=== PATIENT | female | born 1995 | race Caucasian/White ===

== ENCOUNTER → 2016-10-22 | Outpatient (CLI) | payer OTHER ==
[2016-10-22 16:34] LABS: CH 30.9; CHCM 34.3; HCT 40.3 % (34.0-46.0); HGB 13.7 gm/dL (11.4-16.0); MCH 30.7 pg (25.0-35.0); MCV 90.3 fL (80.0-100.0); Mean Platelet Volume 7.9; RBC 4.47 m/uL (3.80-5.40); RDW 12.7 % (11.5-15.5); WBC 9.4 k/uL (3.8-10.6)
[2016-10-22 17:14] LABS: Glucose 88 mg/dL (74-99); Non-African American GFR(MDRD) >60 (>60 ml/min/1.73 sqM)
--- NOTE | 2016-10-22 17:26 | US ---
EXAMINATION TYPE: US OB <=14 wks transvag DATE OF EXAM: 10/22/2016 COMPARISON: NONE CLINICAL HISTORY: 046.91 BLEEDING, SPOTING. EXAM PERFORMED: Transvaginal (TV) and Transabdominal (TA) EXAM MEASUREMENTS: GESTATIONAL AGE / DATING Physician Established: not established Dates by LMP: does not correlate Dates by First Scan: this is first scan Dates by Current Scan for: (6 weeks/0 days) EDC: 06/17/2017 MATERNAL ANATOMY Uterus: 6.7 x 3.9 x 5.9 cm Right Ovary: 2.4 x 2.3 x 2.3 cm Left Ovary: 6.6 x 3.3 x 4.9 Post CDS / Adnexa: trace free fluid Presence of free fluid: small amount in cul de sac Presence of corpus luteal cyst: left ovary measuring 3.2 x 2.5 x 2.9 cm GESTATION / SURVEY CRL: 0.3 cm (6 weeks/0 days) MSD: 1.7 (6 weeks/0 days) Yolk Sac (normal less than 6mm): 0.3 cm Heart Rate: 105 bpm Rhythm: Normal IUP: Viable IUP Date of LMP: patient states in either July or August, dates given would of put her 11 weeks , does not correlate. viable IUP at 6W 0D, HR 105. IMPRESSION: Single viable intrauterine however dates are discordant. Small amount of free fluid and cor pus luteal cyst.
[2016-10-22 17:43] LABS: Hepatitis B Surface Ag Index 0.06
[2016-10-22 17:56] LABS: HCG,Quantitative Serum 54847.4 mIU/mL
[2016-10-23 05:00] LABS: Toxoplasma Antibody (IgG) <3.0 IU/mL (<7.2)
== END | disposition home or self-care (01) ==
LOC: RADUSWWP 15:22
PROVIDERS: ATTEND Obstetrics & Gynecology
DX: O34.80 Maternal care for other abnormalities of pelvic organs, unspecified trimester (principal); N83.10 Corpus luteum cyst of ovary, unspecified side; Z3A.01 Less than 8 weeks gestation of pregnancy
CPT/HCPCS: 36415; 76801; 76817; 82565; 82947; 84702; 85027; 86762; 86777; 86778; 86780; 86850; 86900; 86901; 87340

== ENCOUNTER → 2016-10-29 | Outpatient (CLI) | payer OTHER ==
--- NOTE | 2016-10-29 11:52 | US ---
EXAMINATION TYPE: US OB <= 14 wk fetus DATE OF EXAM: 10/29/2016 COMPARISON: US 2017 CLINICAL HISTORY: Z36 FOLLOW UP PREV ABN US; EXAM PERFORMED: Transabdominal (TA) EXAM MEASUREMENTS: GESTATIONAL AGE / DATING Physician Established: not established Dates by LMP: unsure of LMP Dates by First Scan: ( 7 weeks/0 days) EDC: 06/17/2017 Dates by Current Scan for: (7 weeks/ 1 day) EDC: 06/16/2016 MATERNAL ANATOMY Uterus: 6.8 x 6.8 x 4.4cm Right Ovary: 2.1 x 1.0 x 1.6cm Left Ovary: 4.0 x 3.5 x 3.0 Post CDS / Adnexa: wnl Presence of free fluid: no Presence of corpus luteal cyst: in left ovary = 3.3 x 2.4 x 2.6cm Presence of subchorionic bleed: no GESTATION / SURVEY CRL: 1.06cm (7 weeks/1 day) Yolk Sac (normal less than 6mm): not seen Heart Rate: 127 bpm Rhythm: Normal IUP: single Date of LMP: unsure Beta HcG (if available): NA IMPRESSION: Single, live, IUP,7 weeks/ 1 day, EDC: 06/16/2016; HR 127bpm.
== END | disposition home or self-care (01) ==
LOC: RADUSWWP 10:53
PROVIDERS: ATTEND Obstetrics & Gynecology
DX: Z36 Encounter for antenatal screening of mother (principal); Z3A.01 Less than 8 weeks gestation of pregnancy
CPT/HCPCS: 76801

== ENCOUNTER → 2017-12-24 | Outpatient (CLI) | payer OTHER ==
--- NOTE | 2017-12-25 08:16 | US ---
EXAMINATION TYPE: US transvaginal DATE OF EXAM: 12/24/2017 COMPARISON: NONE CLINICAL HISTORY: R10.2 Pelvic and perineal pain. TECHNIQUE: Transvaginal sonographic images were ordered. Date of LMP: 12/06/17 EXAM MEASUREMENTS: Uterus: 6.6 x 4.0 x 3.7 cm Endometrial Stripe: 0.8 cm Right Ovary: 2.3 x 1.5 x 1.3 cm Left Ovary: 2.5 x 2.3 x 1.7 cm 1. Uterus: IUD seen within fundus 2. Endometrium: wnl 3. Right Ovary: wnl 4. Left Ovary: There is a 1.7 x 1.2 cm simple appearing left ovarian cyst. 5. Bilateral Adnexa: wnl 6. Posterior cul-de-sac: wnl IMPRESSION: 1. IUD is within the uterus. 2. Left ovarian cyst.
== END | disposition home or self-care (01) ==
LOC: RADUSWWP 15:47
PROVIDERS: ATTEND Obstetrics & Gynecology
DX: N83.202 Unspecified ovarian cyst, left side (principal); Z97.5 Presence of (intrauterine) contraceptive device
CPT/HCPCS: 76830

== ENCOUNTER → 2019-07-08 | Outpatient (CLI) | payer OTHER ==
--- NOTE | 2019-07-08 09:49 | US ---
EXAMINATION TYPE: Transabdominal DATE OF EXAM: 07/08/2019 9:21 AM COMPARISON: NONE CLINICAL HISTORY: Z34.01 SUPERVISION OF NORMAL FIRST . EXAM PERFORMED: Transvaginal (TV) and Transabdominal (TA) EXAM MEASUREMENTS: GESTATIONAL AGE / DATING Physician Established: Not yet established Dates by LMP: 05/09/2019 (8 weeks/4 days) EDC: 02/13/2020 Dates by First Scan: No previous this is first scan Dates by Current Scan for: (7 weeks/5 days) EDC: 02/19/2020 MATERNAL ANATOMY Uterus: 9.2 x 5.0 x 5.8 cm Right Ovary: 3.1 x 2.2 x 2.0 cm Left Ovary: 2.6 x 1.8 x 1.8 cm Post CDS / Adnexa: wnl Presence of free fluid: none Presence of corpus luteal cyst: complex area right ovary measures 2.5 x 1.5 x 2.2 cm GESTATION / SURVEY CRL: 1.4 cm (7 weeks/5 days) Yolk Sac (normal less than 6mm): 0.3 cm Heart Rate: 160 bpm Rhythm: Normal IUP: Live IUP Date of LMP: 05/09/2019 Single live IUP that correlates with LMP. IMPRESSION: Single live intrauterine with a sonographic age of 7 weeks and 5 days and estim ated date of delivery of 02/19/2020, overall concordant with menstrual age.
== END | disposition home or self-care (01) ==
LOC: RADUSWWP 08:51
PROVIDERS: ATTEND Obstetrics & Gynecology
DX: Z34.01 Encounter for supervision of normal first pregnancy, first trimester (principal); Z3A.01 Less than 8 weeks gestation of pregnancy
CPT/HCPCS: 76801; 76817

== ENCOUNTER → 2020-05-21 | Outpatient (CLI) | payer OTHER ==
[2020-05-21 12:52] LABS: HCT 38.2 % (34.0-46.0); HGB 13.3 gm/dL (11.4-16.0); MCH 30.2 pg (25.0-35.0); MCHC 34.9 g/dL (31.0-37.0); MCV 86.5 fL (80.0-100.0); Mean Platelet Volume 8.3; Platelet Count 253 k/uL (150-450); RBC 4.42 m/uL (3.80-5.40); RDW 14.2 % (11.5-15.5)
[2020-05-21 20:33] LABS: African American GFR (CKD) 139.6 (60.0-200.0); Albumin 4.7 g/dL (3.80-4.90); Albumin/Globulin Ratio 2.04 (1.60-3.17); Anion Gap 10.3 mmol/L (4.00-12.00); BUN/Creat Ratio 21.43 Ratio (12.00-20.00); Calcium 9.3 mg/dL (8.7-10.3); Carbon Dioxide 22.7 mmol/L (21.6-31.8); Chol/HDL Ratio 3.13; Globulin 2.3 g/dL (1.6-3.3); LDL Cholesterol,Calculated 123.2 mg/dL (0.0-131.0); Non-African American GFR(CKD) 120.4 (60.0-200.0); Potassium 3.8 mmol/L (3.5-5.5); Total Bilirubin 0.4 mg/dL (0.2-1.2); VLDL Calculation 19.8 mg/dL (5.00-40.00)
[2020-05-21 23:00] LABS: C-Peptide 0.92 ng/mL (0.81-3.85)
[2020-05-21 23:21] LABS: Urine Creatinine 173.3 mg/dL
== END | disposition home or self-care (01) ==
LOC: LABWHC1 11:43
PROVIDERS: ATTEND Internal Medicine Endocrinology, Diabetes & Metabolism
DX: E11.65 Type 2 diabetes mellitus with hyperglycemia (principal)
CPT/HCPCS: 36415; 80053; 80061; 82043; 82306; 82570; 83519; 84439; 84443; 84681; 85027; 86337; 86341

== ENCOUNTER 2023-09-17 16:12 | Emergency (ER) | payer OTHER ==
--- NOTE | 2023-09-17 17:06 | ED ---
Abdominal Pain HPI - General Chief Complaint: Abdominal Pain Stated Complaint: vaginal bleeding - 8 wks preg Time Seen by Provider: 09/17/23 16:30 Source: patient, RN notes reviewed Mode of arrival: ambulatory Limitations: no limitations - History of Present Illness Initial Comments: 27-year-old female at 7 weeks gestation presenting with vaginal bleeding and suprapubic pain x 4 days. States the bleeding began as dark brown and light in quantity, but over the past couple days it has become more abundant and bright red. Patient admits generalized suprapubic discomfort, but denies any back pain, nausea, vomiting. Patient states she has had 2 pregnancies prior to this. States she has not had an ultrasound yet, she was scheduled for an ultrasound in 4 days from now which would be 8 weeks. Denies history of ectopic or miscarriage. - Related Data Allergies Allergy/AdvReac Type Severity Reaction Status Date / Time Penicillins Allergy Anaphylaxis Verified 09/17/23 16:39 Review of Systems ROS Statement: Those systems with pertinent positive or pertinent negative responses have been documented in the HPI. ROS Other: All systems not noted in ROS Statement are negative. Past Medical History Past Medical History: Diabetes Mellitus Additional Past Medical History / Comment(s): type 1 History of Any Multi-Drug Resistant Organisms: None Reported Past Surgical History: Section Past Psychological History: No Psychological Hx Reported Smoking Status: Never smoker Past Alcohol Use History: None Reported Past Drug Use History: None Reported, Marijuana General Exam Limitations: no limitations General appearance: alert, in no apparent distress Respiratory exam: Present: normal lung sounds bilaterally. Absent: respiratory distress, wheezes, rales, rhonchi, stridor Cardiovascular Exam: Present: regular rate, normal rhythm, normal heart sounds. Absent: systolic murmur, diastolic murmur, rubs, gallop, clicks GI/Abdominal exam: Present: soft, normal bowel sounds. Absent: distended, tenderness, guarding, rebound, rigid Back exam: Absent: CVA tenderness (R), CVA tenderness (L) Psychiatric exam: Present: normal affect, normal mood Skin exam: Present: warm, dry, intact, normal color. Absent: rash Course Vital Signs 09/17/23 16:36 Temperature 98.5 F Pulse Rate 99 Respiratory 16 Rate Blood Pressure 114/74 O2 Sat by Pulse 100 Oximetry Medical Decision Making - Medical Decision Making Was pt. sent in by a medical professional or institution ([facility]TE Tipton, CARDIOVASCULAR TECHNICIAN, urgent care, hospital, or long term...) When possible be specific @ -No Did you speak to anyone other than the patient for history (EMS, parent, family, police, friend...)? What history was obtained from this source @ -No Did you review nursing and triage notes (agree or disagree)? Why? @ -I reviewed and agree with nursing and triage notes Were old charts reviewed (outside hosp., previous admission, EMS record, old EKG, old radiological studies, urgent care reports/EKG's, long term records)? Report findings @ -No old charts were reviewed Differential Diagnosis (chest pain, altered mental status, abdominal pain women, abdominal pain men, vaginal bleeding, weakness, fever, dyspnea, syncope, headache, dizziness, GI bleed, back pain, seizure, CVA, palpatations, mental health, musculoskeletal)? @ -Differential Vaginal Bleeding: Spontaneous , threatened , molar , ectopic , bloody show, incompetent cervix, abruptioplacenta, placenta previa, uterine rupture, dysfunctional uterine bleeding, hemorrhage, uterine fibroids, this is not meant to be an all-inclusive list. EKG interpreted by me (3pts min.). @ -None X-rays interpreted by me (1pt min.). @ -None done CT interpreted by me (1pt min.). @ -None done U/S interpreted by me (1pt. min.). @ -Pelvic ultrasound revealed single, live intrauterine estimating 6 weeks and 2 days What testing was considered but not performed or refused? (CT, X-rays, U/S, labs)? Why? @ -None What meds were considered but not given or refused? Why? @ -None Did you discuss the management of the patient with other professionals (professionals i.e. [employer] Tipton, CARDIOVASCULAR TECHNICIAN, lab, RT, psych nurse, web content & social media manager, clerk of court, teacher, nuclear officer, shoe parts caser)? Give summary @ -No Was smoking cessation discussed for >3mins.? @ -No Was critical care preformed (if so, how long)? @ -No Were there social determinants of health that impacted care today? How? (Homelessness, low income, unemployed, alcoholism, drug addiction, transportation, low edu. Level, literacy, decrease access to med. care, shelter, rehab)? @ -No Was there de-escalation of care discussed even if they declined (Discuss DNR or withdrawal of care, Hospice)? DNR status @ -No What co-morbidities impacted this encounter? (DM, HTN, Smoking, COPD, CAD, Cancer, CVA, ARF, Chemo, Hep., AIDS, mental health diagnosis, sleep apnea, morbid obesity)? @ -None Was patient admitted / discharged? Hospital course, mention meds given and route, prescriptions, significant lab abnormalities, going to OR and other pertinent info. @ -Patient was discharged. Patient was seen and evaluated for vaginal bleeding and mild abdominal cramping at 7 weeks gestation. Ultrasound revealed viable intrauterine . Labs were unremarkable. Patient is Rh negative. Patient was given RhoGAM. Discussed diagnosis of threatened with patient. Advised to follow-up with OB in 2 days for repeat beta hCG levels to trend and possible repeat ultrasound. Strict return precautions discussed with patient and alarm symptoms discussed. Patient discharged in stable condition. Case discussed with Dr. Reyes. Undiagnosed new problem with uncertain prognosis? @ -No Drug Therapy requiring intensive monitoring for toxicity (Heparin, Nitro, Insulin, Cardizem)? @ -No Were any procedures done? @ -No Diagnosis/symptom? @ -Threatened Acute, or Chronic, or Acute on Chronic? @ -Acute Uncomplicated (without systemic symptoms) or Complicated (systemic symptoms)? @ -Uncomplicated Side effects of treatment? @ -No Exacerbation, Progression, or Severe Exacerbation? @ -No Poses a threat to life or bodily function? How? (Chest pain, USA, DC, pneumonia, PE, COPD, DKA, ARF, appy, cholecystitis, CVA, Diverticulitis, Homicidal, Suicidal, threat to staff... and all critical care pts) @ -No - Lab Data Result diagrams: 09/17/23 17:05 09/17/23 17:05 Lab Results 09/17/23 09/17/23 09/17/23 Range/Units 17:05 17:05 17:05 WBC 9.5 (3.8-10.6) k/uL RBC 4.72 (3.80-5.40) m/uL Hgb 14.1 (11.4-16.0) gm/dL Hct 43.8 (34.0-46.0) % MCV 92.8 (80.0-100.0) fL MCH 30.0 (25.0-35.0) pg MCHC 32.3 (31.0-37.0) g/dL RDW 12.0 (11.5-15.5) % Plt Count 236 (150-450) k/uL MPV 8.6 Neutrophils % 62 % Lymphocytes % 29 % Monocytes % 5 % Eosinophils % 2 % Basophils % 1 % Neutrophils # 5.9 (1.3-7.7) k/uL Lymphocytes # 2.7 (1.0-4.8) k/uL Monocytes # 0.5 (0-1.0) k/uL Eosinophils # 0.2 (0-0.7) k/uL Basophils # 0.1 (0-0.2) k/uL Sodium 138 (137-145) mmol/L Potassium 4.2 (3.5-5.1) mmol/L Chloride 103 (98-107) mmol/L Carbon Dioxide 30 (22-30) mmol/L Anion Gap 5 mmol/L BUN 9 (7-17) mg/dL Creatinine 0.43 L (0.52-1.04) mg/dL Est GFR (CKD-EPI)AfAm >90 (>60 ml/min/1.73 sqM) Est GFR (CKD-EPI)NonAf >90 (>60 ml/min/1.73 sqM) Glucose 218 H (74-99) mg/dL Calcium 9.7 (8.4-10.2) mg/dL HCG, Quant 2250.5 mIU/mL Urine Color Colorless Urine Appearance Cloudy H (Clear) Urine pH 6.5 (5.0-8.0) Ur Specific [place] 1.008 (1.001-1.035) Urine Protein Negative (Negative) Urine Glucose (UA) 4+ H (Negative) Urine Ketones Negative (Negative) Urine Blood Large H (Negative) Urine Nitrite Negative (Negative) Urine Bilirubin Negative (Negative) Urine Urobilinogen <2.0 (<2.0) mg/dL Ur Leukocyte Esterase Negative (Negative) Urine RBC 1 (0-5) /hpf Urine WBC <1 (0-5) /hpf Ur Squamous Epith Cells 2 (0-4) /hpf Urine Bacteria Rare H (None) /hpf Blood Type Blood Type Recheck Bld Type Recheck Status 04/25/24 Range/Units 18:15 WBC (3.8-10.6) k/uL RBC (3.80-5.40) m/uL Hgb (11.4-16.0) gm/dL Hct (34.0-46.0) % MCV (80.0-100.0) fL MCH (25.0-35.0) pg MCHC (31.0-37.0) g/dL RDW (11.5-15.5) % Plt Count (150-450) k/uL MPV Neutrophils % % Lymphocytes % % Monocytes % % Eosinophils % % Basophils % % Neutrophils # (1.3-7.7) k/uL Lymphocytes # (1.0-4.8) k/uL Monocytes # (0-1.0) k/uL Eosinophils # (0-0.7) k/uL Basophils # (0-0.2) k/uL Sodium (137-145) mmol/L Potassium (3.5-5.1) mmol/L Chloride (98-107) mmol/L Carbon Dioxide (22-30) mmol/L Anion Gap mmol/L BUN (7-17) mg/dL Creatinine (0.52-1.04) mg/dL Est GFR (CKD-EPI)AfAm (>60 ml/min/1.73 sqM) Est GFR (CKD-EPI)NonAf (>60 ml/min/1.73 sqM) Glucose (74-99) mg/dL Calcium (8.4-10.2) mg/dL HCG, Quant mIU/mL Urine Color Urine Appearance (Clear) Urine pH (5.0-8.0) Ur Specific [place] (1.001-1.035) Urine Protein (Negative) Urine Glucose (UA) (Negative) Urine Ketones (Negative) Urine Blood (Negative) Urine Nitrite (Negative) Urine Bilirubin (Negative) Urine Urobilinogen (<2.0) mg/dL Ur Leukocyte Esterase (Negative) Urine RBC (0-5) /hpf Urine WBC (0-5) /hpf Ur Squamous Epith Cells (0-4) /hpf Urine Bacteria (None) /hpf Blood Type A Negative Blood Type Recheck A Neg Bld Type Recheck Status [facility] ONLY Disposition Clinical Impression: Threatened in first trimester Disposition: HOME SELF-CARE Condition: Stable Instructions (If sedation given, give patient instructions): Threatened Miscarriage (ED) Additional Instructions: Please follow-up with OB in 2 days for repeat beta-hCG levels and possible r epeat ultrasound. Please return to the Emergency Department if symptoms worsen or any other concerns. Is patient prescribed a controlled substance at d/c from ED?: No Referrals: Janee Fried MD [Primary Care Provider] - 1-2 days Time of Disposition: 19:29
[2023-09-17 17:21] LABS: Basophils # (A) 0.1 k/uL (0-0.2); Basophils % (A) 1 %; Eosinophils # (A) 0.2 k/uL (0-0.7); Eosinophils % (A) 2 %; HCT 43.8 % (34.0-46.0); HGB 14.1 gm/dL (11.4-16.0); Lymphocytes # (A) 2.7 k/uL (1.0-4.8); Lymphocytes % (A) 29 %; MCHC 32.3 g/dL (31.0-37.0); MCV 92.8 fL (80.0-100.0); Mean Platelet Volume 8.6; Monocytes # (A) 0.5 k/uL (0-1.0); Monocytes % (A) 5 %; Neutrophils # (A) 5.9 k/uL (1.3-7.7); Neutrophils % (A) 62 %; Platelet Count 236 k/uL (150-450); RBC 4.72 m/uL (3.80-5.40); WBC 9.5 k/uL (3.8-10.6)
[2023-09-17 17:34] LABS: African American GFR (CKD) >90 (>60 ml/min/1.73 sqM); Anion Gap 5 mmol/L; Blood Urea Nitrogen 9 mg/dL (7-17); Calcium 9.7 mg/dL (8.4-10.2); Carbon Dioxide 30 mmol/L (22-30); Chloride 103 mmol/L (98-107); Glucose 218 mg/dL (74-99); Non-African American GFR(CKD) >90 (>60 ml/min/1.73 sqM); Potassium 4.2 mmol/L (3.5-5.1); Sodium 138 mmol/L (137-145)
[2023-09-17 17:48] LABS: Appearance,Urine Cloudy (Clear); Bacteria,Urine Rare /hpf; Bilirubin,Urine Negative (Negative); Blood,Urine Large (Negative); Color,Urine Colorless; Glucose,Urine (UA) 4+ (Negative); Ketones,Urine Negative (Negative); Leukocyte Esterase,Urine Negative (Negative); Nitrite,Urine Negative (Negative); PH, Urine 6.5 (5.0-8.0); Protein,Urine Negative (Negative); RBC,Urine 1 /hpf (0-5); Specific Gravity,Urine 1.008 (1.001-1.035); Squamous Epithelial Cell,Urine 2 /hpf (0-4); Urobilinogen,Urine <2.0 mg/dL (<2.0); WBC,Urine <1 /hpf (0-5)
[2023-09-17 17:51] LABS: HCG,Quantitative Serum 2250.5 mIU/mL
--- NOTE | 2023-09-17 18:55 | US ---
EXAMINATION TYPE: Transabdominal DATE OF EXAM: 09/17/2023 5:48 PM COMPARISON: 07/08/2019 CLINICAL INDICATION: Female, 27 years old with history of vaginal bleeding/ 7 weeks ; Patient states bleeding and cramping for 4 days. EXAM PERFORMED: Transvaginal (TV) and Transabdominal (TA) EXAM MEASUREMENTS: GESTATIONAL AGE / DATING Physician Established: (7 weeks/4 days) EDC: 05/01/2024 Dates by LMP: (7 weeks/4 days) EDC: 05/01/2024 Dates by First Scan: No previous this is first scan Dates by Current Scan for: (6 weeks/2 days) EDC: 05/10/2024 MATERNAL ANATOMY Uterus: 7.2 x 4.1 x 5.2. Viable IUP seen at this time. Right Ovary: Measures 2.8 x 1.7 x 2.8cm. There is a 1.3 x 1.0 x 1.1cm hypoechoic area seen within t he right ovary, question corpus luteum cyst vs other etiology. Left Ovary: 2.3 x 1.7 x 1.1cm. Within normal limits as best visualized Post CDS / Adnexa: Within normal limits as best seen Presence of free fluid: No Presence of corpus luteal cyst: Questionable, see right ovary for details. Presence of subchorionic bleed: No GESTATION / SURVEY CRL: 0.5cm (6 weeks/2 days) MSD: 0.68cm The gestational sac appears relatively small in size; will be reassessed on follow-up Yolk Sac (normal less than 6mm): 1.4 mm Heart Rate: 132 bpm Rhythm: Normal IUP: Viable IUP Beta HcG (if available): 2250 IMPRESSION: Single, live IUP measuring 6 weeks 2 days with EDC 05/10/2024.
[2023-09-17] MEDS: Rhogam IMMUNE GLOBULIN 1,500 UNIT/1 ML IM STA (21:09)
[2023-09-17 21:23] VITALS: BP 116/72; PULSE 92; RESP 18; TEMP 98.2
== END 2023-09-17 21:17 | disposition home or self-care (01) ==
LOC: EC 16:12
DX: O20.0 Threatened abortion (principal); Z88.0 Allergy status to penicillin; Z3A.01 Less than 8 weeks gestation of pregnancy
CPT/HCPCS: 99284; 96372; 36415; 86900; 86901; 80048; 85025; 86850; 81001; 84702; 76801; 76817; J2790

== ENCOUNTER 2024-03-01 15:45 | Inpatient (IN) | payer MEDICARE, OTHER ==
[2024-03-01] MEDS: SODIUM CHLORIDE 0.9% 2,000 ML IV STA (17:21)
--- NOTE | 2024-03-01 17:23 | ED ---
Nausea/Vomiting/Diarrhea HPI - General Chief complaint: Nausea/Vomiting/Diarrhea Stated complaint: vomiting Time Seen by Provider: 03/01/24 16:59 Source: patient Mode of arrival: ambulatory Limitations: no limitations - History of Present Illness Initial comments: 28-year-old female with history of type 1 diabetes at 22 weeks gestation presenting to the ER with chief complaint of vomiting x 1 day. States she woke up at 6 AM this morning with subjective fevers, nausea, and vomiting. She has been unable to keep anything down. She was seen at urgent care where they told her she had ketones in her urine and instructed her to come to the ER. Her bl ood glucose was in the high 200s prior to arrival. Patient gave herself 2 units of insulin upon arrival to the ER via her insulin pump. Denies abdominal pain, vaginal bleeding. States she has had ultrasounds with her OB which reveal normal intrauterine . States she has multiple sick contacts with similar symptoms. - Related Data Home Medications Medication Instructions Recorded Confirmed Aspirin EC [Ecotrin Low Dose] 81 mg PO DAILY 03/01/24 03/01/24 Calcium Carbonate [Calcium] 600 mg PO DAILY 03/01/24 03/01/24 Cetirizine HCl [Zyrtec] 10 mg PO DAILY 03/01/24 03/01/24 Insulin Aspart (For Pump) [NovoLOG 0.01 unit SQ-PUMP CONTINUOUS 03/01/24 03/01/24 (For Pump)] valACYclovir HCL [Valtrex] 1,000 mg PO BID 03/01/24 03/01/24 Allergies Allergy/AdvReac Type Severity Reaction Status Date / Time Penicillins Allergy Anaphylaxis/Flu Verified 03/01/24 17:40 Like Symptoms Review of Systems ROS Statement: Those systems with pertinent positive or pertinent negative responses have been documented in the HPI. ROS Other: All systems not noted in ROS Statement are negative. Past Medical History Past Medical History: Diabetes Mellitus Additional Past Medical History / Comment(s): type 1 History of Any Multi-Drug Resistant Organisms: None Reported Past Surgical History: Section Past Psychological History: No Psychological Hx Reported Smoking Status: Never smoker Past Alcohol Use History: None Reported Past Drug Use History: None Reported, Marijuana General Exam Limitations: no limitations General appearance: alert, in no apparent distress Head exam: Present: atraumatic, normocephalic, normal inspection Eye exam: Present: normal appearance, PERRL, EOMI. Absent: scleral icterus, conjunctival injection, periorbital swelling ENT exam: Present: normal exam, mucous membranes moist Cardiovascular Exam: Present: regular rate, normal rhythm, normal heart sounds. Absent: systolic murmur, diastolic murmur, rubs, gallop, clicks GI/Abdominal exam: Present: soft, normal bowel sounds. Absent: distended, tend erness, guarding, rebound, rigid Neurological exam: Present: alert, oriented X3 Psychiatric exam: Present: normal affect, normal mood Skin exam: Present: warm, dry, intact, normal color. Absent: rash Course Vital Signs 03/01/24 03/01/24 15:57 19:00 Temperature 98.0 F Pulse Rate 87 77 Respiratory 16 16 Rate Blood Pressure 100/67 101/59 O2 Sat by Pulse 99 99 Oximetry Medical Decision Making - Medical Decision Making Was pt. sent in by a medical professional or institution (, PA, TOP EXECUTIVE, urgent care, hospital, or snf...) When possible be specific @ -No Did you speak to anyone other than the patient for history (EMS, parent, family, police, friend...)? What history was obtained from this source @ -No Did you review nursing and triage notes (agree or disagree)? Why? @ -I reviewed and agree with nursing and triage notes Were old charts reviewed (outside hosp., previous admission, EMS record, old EKG, old radiological studies, urgent care reports/EKG's, snf records)? Report findings @ -No old charts were reviewed Differential Diagnosis (chest pain, altered mental status, abdominal pain women, abdominal pain men, vaginal bleeding, weakness, fever, dyspnea, syncope, heada eusebia, dizziness, GI bleed, back pain, seizure, CVA, palpatations, mental health, musculoskeletal)? @ -Viral gastroenteritis, dehydration, DKA, HHS, hyperemesis gravidarum EKG interpreted by me (3pts min.). @ -As above X-rays interpreted by me (1pt min.). @ -None done CT interpreted by me (1pt min.). @ -None done U/S interpreted by me (1pt. min.). @ -None done What testing was considered but not performed or refused? (CT, X-rays, U/S, labs)? Why? @ -None What meds were considered but not given or refused? Why? @ -None Did you discuss the management of the patient with other professionals (carl garcia i.e. , PA, TOP EXECUTIVE, lab, RT, psych nurse, social work associate, coin purse assembler, teacher, parking enforcement officer, heel caser)? Give summary @ -I spoke with Naomi from [facility] who accepts admission at this time for DKA in Was smoking cessation discussed for >3mins.? @ -No Was critical care preformed (if so, how long)? @ -No Were there social determinants of health that impacted care today? How? (Homelessness, low income, unemployed, alcoholism, drug addiction, transportation, low edu. Level, literacy, decrease access to med. care, [place] [facility], rehab)? @ -No Was there de-escalation of care discussed even if they declined (Discuss DNR or withdrawal of care, Hospice)? DNR status @ -No What co-morbidities impacted this encounter? (DM, HTN, Smoking, COPD, CAD, Cancer, CVA, ARF, Chemo, Hep., AIDS, mental health diagnosis, sleep apnea, morbid obesity)? @ -None Was patient admitted / discharged? Hospital course, mention meds given and route, prescriptions, significant lab abnormalities, going to OR and other pertinent info. @ -Admitted. This is a 28-year-old female with history of type 1 diabetes at approximately 22 weeks gestation presenting to the ER for vomiting x 1 day. Patient was sent from urgent care for ketones in urine. Vital signs are within acceptable limits. Abdomen is soft and nontender. Patient is given 2 L of IV fluids. Lab work remarkable for glucose 255, white blood cell count 19.6, pH 7.26, CO2 18, lactic 1.9, acetone positive. Upon reevaluation, patient reports symptoms have improved. As patient gave herself 2 units of insulin at arrival to ER and DKA appears to be very mild in severity, we will hold insulin drip at this time and continue to monitor glucose and electrolytes. I spoke with Naomi from [facility] who accepts admission for DKA in with consultation to OB. heart tones ordered at this time. Case was discussed with my ED attending Dr. Carbajal. Undiagnosed new problem with uncertain prognosis? @ -No Drug Therapy requiring intensive monitoring for toxicity (Heparin, Nitro, Insulin, Cardizem)? @ -No Were any procedures done? @ -No Diagnosis/symptom? @ -DKA in Acute, or Chronic, or Acute on Chronic? @ -Acute Uncomplicated (without systemic symptoms) or Complicated (systemic symptoms)? @ -Complicated Side effects of treatment? @ -No Exacerbation, Progression, or Severe Exacerbation? @ -No Poses a threat to life or bodily function? How? (Chest pain, USA, NM, pneumonia, PE, COPD, DKA, ARF, appy, cholecystitis, CVA, Diverticulitis, Homicidal, Suicidal, threat to staff... and all critical care pts) @ -Possibly - Lab Data Result diagrams: 03/01/24 17:07 03/01/24 17:07 Lab Results 03/01/24 03/01/24 03/01/24 Range/Units 17:07 17:07 17:07 WBC 19.6 H (3.8-10.6) k/uL RBC 4.38 (3.80-5.40) m/uL Hgb 13.8 (11.4-16.0) gm/dL Hct 40.4 (34.0-46.0) % MCV 92.2 (80.0-100.0) fL MCH 31.5 (25.0-35.0) pg MCHC 34.1 (31.0-37.0) g/dL RDW 14.0 (11.5-15.5) % Plt Count 242 (150-450) k/uL MPV 8.9 Neutrophils % 87 % Lymphocytes % 10 % Monocytes % 2 % Eosinophils % 1 % Basophils % 0 % Neutrophils # 17.1 H (1.3-7.7) k/uL Lymphocytes # 1.9 (1.0-4.8) k/uL Monocytes # 0.4 (0-1.0) k/uL Eosinophils # 0.1 (0-0.7) k/uL Basophils # 0.0 (0-0.2) k/uL VBG pH (7.31-7.41) VBG pCO2 (37-51) mmHg VBG HCO3 (24-28) mmol/L Sodium 134 L (137-145) mmol/L Potassium 4.0 (3.5-5.1) mmol/L Chloride 104 (98-107) mmol/L Carbon Dioxide 18 L (22-30) mmol/L Anion Gap 12 mmol/L BUN 9 (7-17) mg/dL Creatinine 0.43 L (0.52-1.04) mg/dL Est GFR (CKD-EPI)AfAm >90 (>60 ml/min/1.73 sqM) Est GFR (CKD-EPI)NonAf >90 (>60 ml/min/1.73 sqM) Glucose 255 H (74-99) mg/dL Plasma Lactic Acid Mor 1.9 (0.7-2.0) mmol/L Calcium 9.2 (8.4-10.2) mg/dL Total Bilirubin 0.5 (0.2-1.3) mg/dL AST 21 (14-36) U/L ALT 15 (4-34) U/L Alkaline Phosphatase 82 (38-126) U/L Total Protein 7.3 (6.3-8.2) g/dL Albumin 4.3 (3.5-5.0) g/dL Acetone, Qual Positive (Negative) Influenza Type A (PCR) (Not Detectd) Influenza Type B (PCR) (Not Detectd) RSV (PCR) (Not Detectd) SARS-CoV-2 (PCR) (Not Detectd) 03/01/24 03/01/24 Range/Units 17:30 17:30 WBC (3.8-10.6) k/uL RBC (3.80-5.40) m/uL Hgb (11.4-16.0) gm/dL Hct (34.0-46.0) % MCV (80.0-100.0) fL MCH (25.0-35.0) pg MCHC (31.0-37.0) g/dL RDW (11.5-15.5) % Plt Count (150-450) k/uL MPV Neutrophils % % Lymphocytes % % Monocytes % % Eosinophils % % Basophils % % Neutrophils # (1.3-7.7) k/uL Lymphocytes # (1.0-4.8) k/uL Monocytes # (0-1.0) k/uL Eosinophils # (0-0.7) k/uL Basophils # (0-0.2) k/uL VBG pH 7.26 L (7.31-7.41) VBG pCO2 47 (37-51) mmHg VBG HCO3 21 L (24-28) mmol/L Sodium (137-145) mmol/L Potassium (3.5-5.1) mmol/L Chloride (98-107) mmol/L Carbon Dioxide (22-30) mmol/L Anion Gap mmol/L BUN (7-17) mg/dL Creatinine (0.52-1.04) mg/dL Est GFR (CKD-EPI)AfAm (>60 ml/min/1.73 sqM) Est GFR (CKD-EPI)NonAf (>60 ml/min/1.73 sqM) Glucose (74-99) mg/dL Plasma Lactic Acid Mor (0.7-2.0) mmol/L Calcium (8.4-10.2) mg/dL Total Bilirubin (0.2-1.3) mg/dL AST (14-36) U/L ALT (4-34) U/L Alkaline Phosphatase (38-126) U/L Total Protein (6.3-8.2) g/dL Albumin (3.5-5.0) g/dL Acetone, Qual (Negative) Influenza Type A (PCR) Not Detected (Not Detectd) Influenza Type B (PCR) Not Detected (Not Detectd) RSV (PCR) Not Detected (Not Detectd) SARS-CoV-2 (PCR) Not Detected (Not Detectd) - EKG Data -: EKG Interpreted by [place] EKG Comments: EKG reveals sinus rhythm with sinus arrhythmia, no ST changes. Ventricular rate 71 bpm, CA interval 137, QRS duration 91, QT/QTc 391/413 Disposition Clinical Impression: DKA, type 1 Disposition: ADMITTED IP TO THIS HOSP Referrals: Janee Fried MD [Primary Care Provider] - 1-2 days Time of Disposition: 19:34
[2024-03-01 17:26] LABS: Basophils % (A) 0 %; Eosinophils # (A) 0.1 k/uL (0-0.7); Eosinophils % (A) 1 %; HCT 40.4 % (34.0-46.0); HGB 13.8 gm/dL (11.4-16.0); Lymphocytes # (A) 1.9 k/uL (1.0-4.8); Lymphocytes % (A) 10 %; MCH 31.5 pg (25.0-35.0); MCHC 34.1 g/dL (31.0-37.0); MCV 92.2 fL (80.0-100.0); Mean Platelet Volume 8.9; Monocytes # (A) 0.4 k/uL (0-1.0); Monocytes % (A) 2 %; Neutrophils # (A) 17.1 k/uL (1.3-7.7); Neutrophils % (A) 87 %; Platelet Count 242 k/uL (150-450); RBC 4.38 m/uL (3.80-5.40); WBC 19.6 k/uL (3.8-10.6)
[2024-03-01 17:32] LABS: ALT 15 U/L (4-34); AST 21 U/L (14-36); African American GFR (CKD) >90 (>60 ml/min/1.73 sqM); Albumin 4.3 g/dL (3.5-5.0); Alkaline Phosphatase 82 U/L (38-126); Anion Gap 12 mmol/L; Blood Urea Nitrogen 9 mg/dL (7-17); Calcium 9.2 mg/dL (8.4-10.2); Carbon Dioxide 18 mmol/L (22-30); Chloride 104 mmol/L (98-107); Glucose 255 mg/dL (74-99); Non-African American GFR(CKD) >90 (>60 ml/min/1.73 sqM); Sodium 134 mmol/L (137-145); Total Bilirubin 0.5 mg/dL (0.2-1.3); Total Protein 7.3 g/dL (6.3-8.2)
[2024-03-01 17:57] LABS: VBG PH 7.26 (7.31-7.41)
[2024-03-01] MEDS ORDERED: NALOXONE 0.4 MG/ML 1 ML VIAL IV PRN (19:24)
[2024-03-01 19:42] LABS: Appearance,Urine Clear (Clear); Bilirubin,Urine Negative (Negative); Blood,Urine Negative (Negative); Color,Urine Colorless; Glucose,Urine (UA) 4+ (Negative); Leukocyte Esterase,Urine Negative (Negative); Nitrite,Urine Negative (Negative); PH, Urine 5.5 (5.0-8.0); Protein,Urine Trace (Negative); Specific Gravity,Urine 1.036 (1.001-1.035); Urobilinogen,Urine <2.0 mg/dL (<2.0)
[2024-03-01] MEDS: SODIUM CHLORIDE 0.9% 1,000 ML IV SCH (20:08)
[2024-03-01 20:27] LABS: African American GFR (CKD) >90 (>60 ml/min/1.73 sqM); Anion Gap 9 mmol/L; Blood Urea Nitrogen 8 mg/dL (7-17); Carbon Dioxide 16 mmol/L (22-30); Chloride 110 mmol/L (98-107); Glucose 173 mg/dL (74-99); Non-African American GFR(CKD) >90 (>60 ml/min/1.73 sqM); Sodium 135 mmol/L (137-145)
[2024-03-01 21:01] LABS: Ketones,Urine 4+ (Negative)
[2024-03-01] MEDS: ACETAMINOPHEN TAB 325 MG TAB PO STA (21:04)
[2024-03-01] MEDS: ONDANSETRON 4 MG/2 ML VIAL IVP STA (21:44)
[2024-03-01 22:02] LABS: Glucose,Whole Blood 192 mg/dL (70-110)
[2024-03-02 00:42] LABS: Glucose,Whole Blood 170 mg/dL (70-110)
[2024-03-02 01:49] LABS: African American GFR (CKD) >90 (>60 ml/min/1.73 sqM); Anion Gap 5 mmol/L; Blood Urea Nitrogen 9 mg/dL (7-17); Carbon Dioxide 16 mmol/L (22-30); Chloride 113 mmol/L (98-107); Glucose 173 mg/dL (74-99); Non-African American GFR(CKD) >90 (>60 ml/min/1.73 sqM); Phosphorus 2.8 mg/dL (2.5-4.5); Potassium 3.8 mmol/L (3.5-5.1); Sodium 134 mmol/L (137-145)
[2024-03-02 06:22] LABS: Glucose,Whole Blood 162 mg/dL (70-110)
[2024-03-02 09:10] LABS: Glucose,Whole Blood 154 mg/dL (70-110)
--- NOTE | 2024-03-02 10:19 | P.HPIM ---
History of Present Illness History of present illness;28-year-old female G3, P1 at 22 weeks gestation with a past medical history of type 1 diabetes and preeclampsia presents due to nausea vomiting. Patient reports she woke up yesterday morning and was feeling very nauseous and vomited multiple times. Patient reports once her symptoms did not stop see she decided come to the ED. Patient also admits to having a headache that she believes is from her not eating and not having any caffeine which she normally has copious amounts of. Patient states she normally has a insulin pump that has been functioning properly as well as a glucose monitor that she is not currently wearing. Denies any complications in previous term delivery and no complications during this current . States she follows with Dr. Mike at [facility]. Patient admits to nausea, vomiting, headache, but denies chest pain, shortness of breath, palpitations, abdominal pain, diarrhea, constipation, and polyuria. Family history: Type 1 diabetes Surgical history: Social: Socially drinks, not currently because of . Initial lab work from the ER was significant for WBC 19.6, VBG pH to 7.26, VBG bicarb 21, sodium 135, chloride 110, bicarb 16, glucose 173. EKG done in the ER showed heart rate of 71 bpm, no ST segment elevation or depression seen, no T-wave inversions seen. NSR Patient admitted to internal medicine service The rest of the 14-point review of systems is negative. PHYSICAL EXAMINATION: GENERAL: The patient is alert and oriented x3, not in any acute distress. Well developed, well nourished. HEENT: Pupils are round and equally reacting to light. EOMI. No scleral icterus. No conjunctival pallor. Normocephalic, atraumatic. No pharyngeal erythema. No thyromegaly. CARDIOVASCULAR: S1 and S2 present. No murmurs, rubs, or gallops. PULMONARY: Chest is clear to auscultation b/l, no wheezing or crackles. ABDOMEN: Soft, nontender, nondistended, normoactive bowel sounds. No palpable organomegaly. MUSCULOSKELETAL: No joint swelling or deformity. EXTREMITIES: No cyanosis, clubbing, or pedal edema. NEUROLOGICAL: Gross neurological examination did not reveal any focal deficits. SKIN: No rashes. Assessment: 28-year-old female with a past medical history of type 1 diabetes and preeclampsia presents with nausea and vomiting. Patient is being worked up for treatment of DKA. Plan: #Diabetic ketoacidosis: Patient never had elevated anion gap, but does have bicarb of 16, 4+ ketones in the urine, and positive acetone. Continue NS 75 cc/h pH greater than 7 so will not be giving any bicarb Continue sliding scale Continue to monitor #Headache: Potentially in the setting of lack of eating and lack of caffeine, located around the forehead and expanding to the bilateral occipital regions Neurology consulted Will hold off on CT as patient is and would like to avoid radiation if possible, will follow neurology recommendations F: NS 75 cc/h E: None N: Consistent carbohydrate diet A: Normally ambulates unassisted at home DVT ppx: None GI ppx: None Dispo: Pending clinical course Geoff Brooks MD PGY-1 FM Attestation I have seen and examined this patient with my resident , discussed the same with the resident/NANETTE, and agree with the dictator's assessment and plan as written GENERAL: The patient is alert and oriented x3, not in any acute distress. Well developed, well nourished. HEENT: Pupils are round and equally reacting to light. EOMI. No scleral icterus. No conjunctival pallor. Normocephalic, atraumatic. No pharyngeal erythema. No thyromegaly. CARDIOVASCULAR: S1 and S2 present. No murmurs, rubs, or gallops. PULMONARY: Chest is clear to auscultation, no wheezing or crackles. ABDOMEN: Soft, nontender, nondistended, normoactive bowel sounds. No palpable organomegaly. MUSCULOSKELETAL: No joint swelling or deformity. EXTREMITIES: No cyanosis, clubbing, or pedal edema. NEUROLOGICAL: Gross neurological examination did not reveal any focal deficits. SKIN: No rashes. No neurological deficits. Ordered MRI brain and MRV brain. Continue sliding scale insulin, Patient developed anion gap or cannot tolerate oral intake, will switch patient to insulin drip Dr. Dre dallas Dictation was produced using [employer] software. please excuse any grammatical, word or spelling errors. Past Medical History Past Medical History: Diabetes Mellitus Additional Past Medical History / Comment(s): type 1 History of Any Multi-Drug Resistant Organisms: None Reported Past Surgical History: Section Past Psychological History: No Psychological Hx Reported Smoking Status: Never smoker Past Alcohol Use History: None Reported Past Drug Use History: None Reported, Marijuana - Past Family History Mother Family Medical History: Thyroid Disorder Father Family Medical History: Diabetes Mellitus Medications and Allergies Home Medications Medication Instructions Recorded Confirmed Type Aspirin EC [Ecotrin Low Dose] 81 mg PO DAILY 03/01/24 03/01/24 History Calcium Carbonate [Calcium] 600 mg PO DAILY 03/01/24 03/01/24 History Cetirizine HCl [Zyrtec] 10 mg PO DAILY 03/01/24 03/01/24 History Insulin Aspart (For Pump) [NovoLOG 0.01 unit SQ-PUMP CONTINUOUS 03/01/24 03/01/24 History (For Pump)] valACYclovir HCL [Valtrex] 1,000 mg PO BID 03/01/24 03/01/24 History Allergies Allergy/AdvReac Type Severity Reaction Status Date / Time Penicillins Allergy Anaphylaxis/Flu Verified 03/01/24 17:40 Like Symptoms Physical Exam Vitals: Vital Signs Temp Pulse Resp BP Pulse Ox 03/02/24 06:22 66 18 107/67 98 03/02/24 03:46 86 17 101/59 97 03/01/24 19:00 77 16 101/59 99 03/01/24 15:57 98.0 F 87 16 100/67 99 Intake and Output 03/01/24 03/02/24 03/02/24 22:59 06:59 14:59 Other: Weight 63.503 kg Results CBC & Chem 7: 03/01/24 17:07 03/03/24 05:57 Labs: Abnormal Lab Results - Last 24 Hours (Table) 03/01/24 03/01/24 03/01/24 Range/Units 17:07 17:07 17:30 WBC 19.6 H (3.8-10.6) k/uL Neutrophils # 17.1 H (1.3-7.7) k/uL VBG pH 7.26 L (7.31-7.41) VBG HCO3 21 L (24-28) mmol/L Sodium 134 L (137-145) mmol/L Chloride (98-107) mmol/L Carbon Dioxide 18 L (22-30) mmol/L Creatinine 0.43 L (0.52-1.04) mg/dL Glucose 255 H (74-99) mg/dL POC Glucose (mg/dL) (70-110) mg/dL Ur Specific [place] (1.001-1.035) Urine Protein (Negative) Urine Glucose (UA) (Negative) Urine Ketones (Negative) 03/01/24 03/01/24 03/01/24 Range/Units 19:17 19:52 21:58 WBC (3.8-10.6) k/uL Neutrophils # (1.3-7.7) k/uL VBG pH (7.31-7.41) VBG HCO3 (24-28) mmol/L Sodium 135 L (137-145) mmol/L Chloride 110 H (98-107) mmol/L Carbon Dioxide 16 L (22-30) mmol/L Creatinine 0.35 L (0.52-1.04) mg/dL Glucose 173 H (74-99) mg/dL POC Glucose (mg/dL) 192 H (70-110) mg/dL Ur Specific [place] 1.036 H (1.001-1.035) Urine Protein Trace H (Negative) Urine Glucose (UA) 4+ H (Negative) Urine Ketones 4+ H (Negative) 03/02/24 03/02/24 03/02/24 Range/Units 00:39 01:23 06:21 WBC (3.8-10.6) k/uL Neutrophils # (1.3-7.7) k/uL VBG pH (7.31-7.41) VBG HCO3 (24-28) mmol/L Sodium 134 L (137-145) mmol/L Chloride 113 H (98-107) mmol/L Carbon Dioxide 16 L (22-30) mmol/L Creatinine 0.32 L (0.52-1.04) mg/dL Glucose 173 H (74-99) mg/dL POC Glucose (mg/dL) 170 H 162 H (70-110) mg/dL Ur Specific [place] (1.001-1.035) Urine Protein (Negative) Urine Glucose (UA) (Negative) Urine Ketones (Negative)
[2024-03-02 10:22] LABS: Glucose,Whole Blood 156 mg/dL (70-110)
[2024-03-02 11:53] LABS: Glucose,Whole Blood 153 mg/dL (70-110)
[2024-03-02] MEDS: INSULIN ASPART (NovoLOG) 100 UNIT/ML VIAL SQ SCH (12:01)
[2024-03-02 12:19] LABS: African American GFR (CKD) >90 (>60 ml/min/1.73 sqM); Anion Gap 9 mmol/L; Blood Urea Nitrogen 8 mg/dL (7-17); Calcium 8.3 mg/dL (8.4-10.2); Carbon Dioxide 16 mmol/L (22-30); Chloride 107 mmol/L (98-107); Glucose 144 mg/dL (74-99); Non-African American GFR(CKD) >90 (>60 ml/min/1.73 sqM); Potassium 3.6 mmol/L (3.5-5.1); Sodium 132 mmol/L (137-145)
[2024-03-02] MEDS: ACETAMINOPHEN TAB 325 MG TAB PO PRN (13:48)
[2024-03-02 13:58] LABS: Glucose,Whole Blood 112 mg/dL (70-110)
[2024-03-02] MEDS: MAGNESIUM SULFATE-D5W PMX 1 GM in DEXTROSE/WATER 1 100ML.BAG IVPB ONE (14:57)
[2024-03-02] MEDS: ACETAMINOPHEN IV (For NPO) 1,000 MG in EMPTY BAG 1 BAG IVPB ONE (14:59)
[2024-03-02 15:11] LABS: Glucose,Whole Blood 119 mg/dL (70-110)
[2024-03-02 16:52] LABS: Glucose,Whole Blood 128 mg/dL (70-110)
--- NOTE | 2024-03-02 17:06 | P.CNNES ---
History of Present Illness Consult date: 03/02/24 Requesting physician: Dre Luong Reason for Consult: migraine History of Present Illness: This is a 28-year-old woman with history of diabetes mellitus who is 22 weeks gestation who presented emergency department because of headache with nausea vomiting. Patient stated that yesterday she has been having constant nausea v omiting episode and later she noticed that she is having headache and the headache is mostly bilateral frontal that radiates back around the head to occipital region. States the headache is more than a 10. Denies any visual disturbance. Denies any diplopia. Denies any focal weakness numbness. Denies any speech difficulty. She states the headache is worse when she stands up. Denies any recent sickness. She states that she drinks 3 to 412 ounces of 0 sugar caffeinated drink daily. Denies any illicit drug use, tobacco use alcohol use. She does follow-up with her scheduled OB visits and everything has been normal so far. Denies any history of stroke or seizures. Some of the workup during this hospital visit consisted of: Blood pressure has been within normal limits. Patient is afebrile White blood cell is 19.6. Sodium is 134, creatinine is 0.43, glucose is 255, plasma lactic acid vein is 1.9, calcium is 9.2, AST ALT is within normal limits. TSH is 1.610. Acetone is positive Review of Systems The positive and negative as per HPI. Past Medical History Past Medical History: Diabetes Mellitus Additional Past Medical History / Comment(s): type 1 History of Any Multi-Drug Resistant Organisms: None Reported Past Surgical History: Section Past Psychological History: No Psychological Hx Reported Smoking Status: Never smoker Past Alcohol Use History: None Reported Past Drug Use History: None Reported, Marijuana Medications and Allergies Home Medications Medication Instructions Recorded Confirmed Type Aspirin EC [Ecotrin Low Dose] 81 mg PO DAILY 03/01/24 03/01/24 History Calcium Carbonate [Calcium] 600 mg PO DAILY 03/01/24 03/01/24 History Cetirizine HCl [Zyrtec] 10 mg PO DAILY 03/01/24 03/01/24 History Insulin Aspart (For Pump) [NovoLOG 0.01 unit SQ-PUMP CONTINUOUS 03/01/24 03/01/24 History (For Pump)] valACYclovir HCL [Valtrex] 1,000 mg PO BID 03/01/24 03/01/24 History Allergies Allergy/AdvReac Type Severity Reaction Status Date / Time Penicillins Allergy Anaphylaxis/Flu Verified 03/01/24 17:40 Like Symptoms Physical Examination - Vital Signs Vital Signs: Vital Signs Temp Pulse Resp BP Pulse Ox 03/02/24 16:34 97.9 F 82 17 107/61 99 03/02/24 15:45 80 18 106/69 100 03/02/24 13:47 98.0 F 71 18 111/66 98 03/02/24 11:52 78 17 93/47 98 03/02/24 10:15 98.0 F 86 18 113/68 98 03/02/24 09:00 97.8 F 80 17 99/86 99 03/02/24 06:22 66 18 107/67 98 03/02/24 03:46 86 17 101/59 97 03/01/24 19:00 77 16 101/59 99 GENERAL: The patient is lying in bed and is not in acute distress. NEUROLOGICAL: Higher mental function: The patient is awake, alert, oriented to self, place and time. Patient is following commands. No aphasia and no neglect. Cranial nerves: The pupils are round, equal and reactive to light and accommodation. Visual agustin are full to confrontation throughout. Fundoscopy: Normal optic disc bilaterally and no appreciable papilledema. Extraocular movement is intact no nystagmus is noted. Facial sensation is normal to touch throughout. The facial strength is normal throughout. Hearing is normal bilaterally to hand rub. Tongue is midline and moved [id number] without any difficulty. No dysarthria is noted. Shoulder shrug is normal bilaterally. Motor: The strength is 5 over 5 throughout. Normal tone and bulk. Cerebellum: Normal finger to nose heel to chin bilaterally. Sensation: Sensation is normal to touch throughout. Reflexes (right/left): 2+ throughout. Plantars are downgoing bilaterally. Results - Laboratory Findings CBC and BMP: 03/01/24 17:03/02/24 11:26 Abnormal Lab Findings: Abnormal Labs 03/01/24 03/01/24 03/01/24 17:07 17:07 17:30 WBC 19.6 H Neutrophils # 17.1 H VBG pH 7.26 L VBG HCO3 21 L Sodium 134 L Chloride Carbon Dioxide 18 L Creatinine 0.43 L Glucose 255 H POC Glucose (mg/dL) Calcium Ur Specific [place] Urine Protein Urine Glucose (UA) Urine Ketones 03/01/24 03/01/24 03/01/24 19:17 19:52 21:58 WBC Neutrophils # VBG pH VBG HCO3 Sodium 135 L Chloride 110 H Carbon Dioxide 16 L Creatinine 0.35 L Glucose 173 H POC Glucose (mg/dL) 192 H Calcium Ur Specific [place] 1.036 H Urine Protein Trace H Urine Glucose (UA) 4+ H Urine Ketones 4+ H 03/02/24 03/02/24 03/02/24 00:39 01:23 06:21 WBC Neutrophils # VBG pH VBG HCO3 Sodium 134 L Chloride 113 H Carbon Dioxide 16 L Creatinine 0.32 L Glucose 173 H POC Glucose (mg/dL) 170 H 162 H Calcium Ur Specific [place] Urine Protein Urine Glucose (UA) Urine Ketones 03/02/24 03/02/24 03/02/24 09:09 10:19 11:26 WBC Neutrophils # VBG pH VBG HCO3 Sodium 132 L Chloride Carbon Dioxide 16 L Creatinine 0.35 L Glucose 144 H POC Glucose (mg/dL) 154 H 156 H Calcium 8.3 L Ur Specific [place] Urine Protein Urine Glucose (UA) Urine Ketones 03/02/24 03/02/24 03/02/24 11:51 13:52 15:09 WBC Neutrophils # VBG pH VBG HCO3 Sodium Chloride Carbon Dioxide Creatinine Glucose POC Glucose (mg/dL) 153 H 112 H 119 H Calcium Ur Specific [place] Urine Protein Urine Glucose (UA) Urine Ketones 03/02/24 16:51 WBC Neutrophils # VBG pH VBG HCO3 Sodium Chloride Carbon Dioxide Creatinine Glucose POC Glucose (mg/dL) 128 H Calcium Ur Specific [place] Urine Protein Urine Glucose (UA) Urine Ketones Assessment and Plan Assessment: This is a 28-year-old woman with history of diabetes 22 weeks gestation and states that she has been having recurrent nausea vomiting episodes and noticed that she is having a headache after having these episodes. Seems that she has DKA. Cephalgia probable due to her hyperemesis as DKA. No focal deficit on examination. Rule out venous sinus thrombosis Diabetic ketoacidosis 22-week gestation Underlying history of diabetes Plan: Ordered magnesium level. I gave the patient magnesium 1 g once IV Patient was started on IV saline 75 cc an hour I ordered MRI of the brain and MR venogram of the head without contrast stat. Patient is on Tylenol 650 mg every 6 hours as needed Defer the rest of the medical management to the primary other specialist The plan is discussed with patient, primary team and her nurse. Thank you for the consultation. Time with Patient: Greater than 30
--- NOTE | 2024-03-02 19:00 | MR ---
EXAMINATION TYPE: MR venography head wo con, MR brain wo con DATE OF EXAM: 03/02/2024 6:33 PM COMPARISON: NONE HISTORY: headache with vomiting. rule out sinus thrombosis. (accession [id number]), headache w ith vomiting. (accession [id number]) Multiplanar and multispin-echo imaging of the brain was performed . Venography was also performed of the dural venous sinuses. The ventricles, basal cisterns and sulci overlying the cerebral convexities are within normal limits. There is no evidence for midline shift or mass effect. Acute intracranial hemorrhage or extra-axial collection is not evident. The brain parenchyma reveals no abnormal increased signal. No acute edema is identified. The paranasal sinuses and mastoid air cells are well-aerated. Venography demonstrates the dural venous sinuses to be patent. No filling defects are seen. IMPRESSION: Unremarkable MRI/MRV of the brain. [facility], , 03/02/2024 6:58 PM
[2024-03-02 19:08] LABS: Glucose,Whole Blood 122 mg/dL (70-110)
[2024-03-02 19:53] LABS: Glucose,Whole Blood 126 mg/dL (70-110)
[2024-03-02] MEDS: ONDANSETRON 4 MG/2 ML VIAL IVP PRN (20:32)
[2024-03-02 21:00] LABS: Glucose,Whole Blood 157 mg/dL (70-110)
--- NOTE | 2024-03-02 21:33 | US ---
EXAMINATION TYPE: US OB >= 14 wk fetus DATE OF EXAM: 03/02/2024 COMPARISON: CLINICAL INDICATION: Female, 28 years old with history of efw/shasta; DKA in . Patient states h eadache since yesterday at 2 am and vomitting TECHNIQUE: Transabdominal (TA) ultrasound of the pelvis FINDINGS: GESTATIONAL AGE / DATING Physician Established: (22 weeks/4 days) EDC: 07/02/2024 Dates by LMP: (22 weeks/4 days) EDC: 07/02/2024 Dates by First Scan: No previous this is first scan at this facility Dates by Current Scan: (23 weeks/1 days) EDC: 06/28/2024 Beta HCG (if available): Not available at this time SURVEY IUP: Single PLACENTA: Fundal PREVIA: No Previa SHASTA: 15.7 cm Normal CERVICAL LENGTH (transabdominal: norm > 3cm): 3 cm. Cervix appears closed. BIOMETRY PRESENTATION: Breech LIE: Longitudinal BPD: 5.57 cm 23 weeks / 0 days HC: 21.58 cm 23 weeks / 5 days AC: 18.58 cm 23 weeks / 3 days FL: 3.77 cm 22 weeks / 1 days ESTIMATED WEIGHT IN GRAMS: 542 grams ESTIMATED WEIGHT IN LBS/OZ: 1 lbs. 3 oz. WEIGHT PERCENTAGE BASED ON ESTABLISHED DATES: 58% HC/AC: 1.16 Normal FL/AC: 20 Normal HEART RATE: 150 bpm RHYTHM: Normal Note no detailed anatomic survey was performed at this time. IMPRESSION: Single, live intrauterine , with details above. [facility], , 03/02/2024 9:31 PM
[2024-03-02 22:01] LABS: Glucose,Whole Blood 137 mg/dL (70-110)
[2024-03-03 01:53] LABS: Glucose,Whole Blood 148 mg/dL (70-110)
[2024-03-03 06:09] LABS: Glucose,Whole Blood 178 mg/dL (70-110)
[2024-03-03 07:46] LABS: African American GFR (CKD) >90 (>60 ml/min/1.73 sqM); Anion Gap 14 mmol/L; Blood Urea Nitrogen 3 mg/dL (7-17); Calcium 8.4 mg/dL (8.4-10.2); Chloride 109 mmol/L (98-107); Glucose 167 mg/dL (74-99); Non-African American GFR(CKD) >90 (>60 ml/min/1.73 sqM); Potassium 3.8 mmol/L (3.5-5.1); Sodium 131 mmol/L (137-145)
[2024-03-03 07:48] LABS: Carbon Dioxide 8 mmol/L (22-30)
[2024-03-03 08:33] LABS: Appearance,Urine Cloudy (Clear); Bacteria,Urine Rare /hpf; Bilirubin,Urine Negative (Negative); Blood,Urine Negative (Negative); Color,Urine Colorless; Glucose,Urine (UA) 3+ (Negative); Leukocyte Esterase,Urine Negative (Negative); Mucus,Urine Rare /hpf; Nitrite,Urine Negative (Negative); PH, Urine 5.5 (5.0-8.0); Protein,Urine Trace (Negative); RBC,Urine 1 /hpf (0-5); Specific Gravity,Urine 1.018 (1.001-1.035); Squamous Epithelial Cell,Urine 2 /hpf (0-4); Urobilinogen,Urine <2.0 mg/dL (<2.0); WBC,Urine 3 /hpf (0-5)
[2024-03-03 08:35] LABS: Ketones,Urine 4+ (Negative)
[2024-03-03] MEDS ORDERED: Potassium Replacement Protocol 1 EACH MISC MISCELLANE PRN ×2 (09:03→09:04)
[2024-03-03] MEDS ORDERED: Magnesium Replacement Protocol 1 EACH MISC MISCELLANE PRN ×2 (09:03→09:04)
[2024-03-03] MEDS ORDERED: DEXTROSE 50% SYRINGE 50 ML IVP PRN ×2 (09:04)
[2024-03-03 09:30] LABS: Basophils % (A) 0 %; Eosinophils # (A) 0.2 k/uL (0-0.7); Eosinophils % (A) 1 %; HCT 34.5 % (34.0-46.0); HGB 11.9 gm/dL (11.4-16.0); Lymphocytes # (A) 2.7 k/uL (1.0-4.8); Lymphocytes % (A) 25 %; MCH 31.7 pg (25.0-35.0); MCHC 34.6 g/dL (31.0-37.0); MCV 91.7 fL (80.0-100.0); Mean Platelet Volume 9.6; Monocytes # (A) 0.5 k/uL (0-1.0); Monocytes % (A) 5 %; Neutrophils # (A) 7.4 k/uL (1.3-7.7); Neutrophils % (A) 67 %; Platelet Count 222 k/uL (150-450); RBC 3.76 m/uL (3.80-5.40); RDW 13.9 % (11.5-15.5); WBC 10.9 k/uL (3.8-10.6)
[2024-03-03 09:35] LABS: VBG PH 7.29 (7.31-7.41)
[2024-03-03 09:43] LABS: African American GFR (CKD) >90 (>60 ml/min/1.73 sqM); Anion Gap 8 mmol/L; Blood Urea Nitrogen 4 mg/dL (7-17); Carbon Dioxide 9 mmol/L (22-30); Chloride 113 mmol/L (98-107); Glucose 179 mg/dL (74-99); Non-African American GFR(CKD) >90 (>60 ml/min/1.73 sqM); Potassium 3.7 mmol/L (3.5-5.1); Sodium 130 mmol/L (137-145)
[2024-03-03] MEDS: SODIUM CHLORIDE 0.9% 1,000 ML IV SCH ×2 (09:45)
[2024-03-03] MEDS: INSULIN REGULAR 100 UNIT in SODIUM CHLORIDE 0.9% 100 ML IV SCH ×2 (09:54→10:18)
[2024-03-03] MEDS: D5-0.45% NACL WITH KCL 20MEQ/L 1,000 ML IV SCH (09:55)
[2024-03-03] MEDS: INSULIN REGULAR BOLUS (FROM DRIP BAG) IV ONE (10:02)
--- NOTE | 2024-03-03 10:11 | P.PN ---
Subjective History of present illness;28-year-old female G3, P1 at 22 weeks gestation with a past medical history of type 1 diabetes and preeclampsia presents due to nausea vomiting. Patient reports she woke up yesterday morning and was feeling very nauseous and vomited multiple times. Patient reports once her symptoms did not stop see she decided come to the ED. Patient also admits to having a headache that she believes is from her not eating and not having any caffeine which she normally has copious amounts of. Patient states she normally has a in sulin pump that has been functioning properly as well as a glucose monitor that she is not currently wearing. Denies any complications in previous term delivery and no complications during this current . States she follows with Dr. Mike at [facility] [employer]ER[employer]. Patient admits to nausea, vomiting, headache, but denies chest pain, shortness of breath, palpitations, abdominal pain, diarrhea, constipation, and polyuria. Family history: Type 1 diabetes Surgical history: Social: Socially drinks, not currently because of . Initial lab work from the ER was significant for WBC 19.6, VBG pH to 7.26, VBG bicarb 21, sodium 135, chloride 110, bicarb 16, glucose 173. EKG done in the ER showed heart rate of 71 bpm, no ST segment elevation or depression seen, no T-wave inversions seen. NSR Subjective: 03/03/2024: Patient seen at bedside. Patient reports her nausea slightly better this morning but still vomiting, still complaining of headache. Pertinent positives and negatives discussed above, a complete review of systems was preformed and all the other sytems were negative. Vitals Signs Reveiwed. General: non toxic, no distress, appears at stated age, normal weight Derm: no unusual rashes/lesions, warm Head: atraumatic, normocephalic, symmetric Eyes: EOMI, no lid lag, anicteric sclera, pupils equal round reactive to light ENT: Nose and ears atraumatic Neck: No cervical lymphadenopathy, trachea midline, supple Mouth: no lip lesion, mucus membranes moist Cardiovascular: S1S2 reg, no murmur, positive dorsalis pedis pulse bilateral, no edema Lungs: Decreased air entry bilaterally, no rhonchi, no rales, no accessory muscle use Abdominal: soft, nontender to palpation, no guarding Ext: muscle strength 5 out of 5 in all 4 extremities grossly, no gross muscle atrophy, no contractures, Neuro: CN II-XI grossly intact, no gross focal neuro deficits Psych: Alert, oriented, appropriate affect Data Reveiwed Today: Patient Labs: Sodium 130, bicarb 9, anion gap 8, glucose 179, UA positive for 4+ ketones Imaging: MRI brain shows no acute process and unremarkable, ultrasound shows single, live intrauterine . EKG shows sinus rhythm, normal ECG. Assessment: 28-year-old female with a past medical history of type 1 diabetes and preeclampsia presents with nausea and vomiting. Patient is being worked up for treatment of DKA. Plan: #Diabetic ketoacidosis: Potassium 3.4, pausing insulin drip for 1 hour, repleted with 40 mill equivalents potassium, will recheck potassium after repletion and if potassium greater than 4 will restart the drip. On insulin drip Continue D5 half-normal saline 150 cc/h Repeat VBG shows pH 7.29, pCO2 23, bicarb 11 . Continue to replete potassium #Headache of unknown etiology: Potentially in the setting of lack of eating and copious episodes of vomiting due to DKA Neurology consulted, recommended continuing Tylenol 650 mg every 6 as needed, continuing fluids, and replete magnesium. MRI shows no abnormalities, venous sinus thrombosis ruled out Chronic: #History of preeclampsia (on aspirin), type 1 diabetes F: D5 half-normal saline at 50 cc/h E: Potassium and magnesium N: Consistent carbohydrate diet A: Normally ambulates unassisted at home DVT ppx: None GI ppx: None Code Status: Full code Anticipated discharge place: To home Anticipated discharge time: Pending clinical course Objective - Vital Signs Vital signs: Vital Signs Temp 97.4 F L 03/02/24 20:15 Pulse 85 03/03/24 03:15 Resp 18 03/03/24 03:15 BP 108/65 03/03/24 03:15 Pulse Ox 100 03/03/24 03:15 FiO2 Intake & Output 03/02/24 03/03/24 03/03/24 18:59 06:59 18:59 Weight 63.503 kg 65.7 kg Other: Voiding Method Toilet - Labs CBC & Chem 7: 03/03/24 09:19 03/03/24 11:59 Labs: Abnormal Lab Results - Last 24 Hours (Table) 1003/02/24 03/02/24 Range/Units 10:19 11:26 11:51 WBC (3.8-10.6) k/uL RBC (3.80-5.40) m/uL VBG pH (7.31-7.41) VBG pCO2 (37-51) mmHg VBG HCO3 (24-28) mmol/L Sodium 132 L (137-145) mmol/L Chloride (98-107) mmol/L Carbon Dioxide 16 L (22-30) mmol/L BUN (7-17) mg/dL Creatinine 0.35 L (0.52-1.04) mg/dL Glucose 144 H (74-99) mg/dL POC Glucose (mg/dL) 156 H 153 H (70-110) mg/dL Calcium 8.3 L (8.4-10.2) mg/dL Urine Appearance (Clear) Urine Protein (Negative) Urine Glucose (UA) (Negative) Urine Ketones (Negative) Urine Bacteria (None) /hpf Urine Mucus (None) /hpf 03/02/24 03/02/24 03/02/24 Range/Units 13:52 15:09 16:51 WBC (3.8-10.6) k/uL RBC (3.80-5.40) m/uL VBG pH (7.31-7.41) VBG pCO2 (37-51) mmHg VBG HCO3 (24-28) mmol/L Sodium (137-145) mmol/L Chloride (98-107) mmol/L Carbon Dioxide (22-30) mmol/L BUN (7-17) mg/dL Creatinine (0.52-1.04) mg/dL Glucose (74-99) mg/dL POC Glucose (mg/dL) 112 H 119 H 128 H (70-110) mg/dL Calcium (8.4-10.2) mg/dL Urine Appearance (Clear) Urine Protein (Negative) Urine Glucose (UA) (Negative) Urine Ketones (Negative) Urine Bacteria (None) /hpf Urine Mucus (None) /hpf 03/02/24 03/02/24 03/02/24 Range/Units 19:03 19:51 20:59 WBC (3.8-10.6) k/uL RBC (3.80-5.40) m/uL VBG pH (7.31-7.41) VBG pCO2 (37-51) mmHg VBG HCO3 (24-28) mmol/L Sodium (137-145) mmol/L Chloride (98-107) mmol/L Carbon Dioxide (22-30) mmol/L BUN (7-17) mg/dL Creatinine (0.52-1.04) mg/dL Glucose (74-99) mg/dL POC Glucose (mg/dL) 122 H 126 H 157 H (70-110) mg/dL Calcium (8.4-10.2) mg/dL Urine Appearance (Clear) Urine Protein (Negative) Urine Glucose (UA) (Negative) Urine Ketones (Negative) Urine Bacteria (None) /hpf Urine Mucus (None) /hpf 03/02/24 03/03/24 03/03/24 Range/Units 21:59 01:52 05:57 WBC (3.8-10.6) k/uL RBC (3.80-5.40) m/uL VBG pH (7.31-7.41) VBG pCO2 (37-51) mmHg VBG HCO3 (24-28) mmol/L Sodium 131 L (137-145) mmol/L Chloride 109 H (98-107) mmol/L Carbon Dioxide 8 L* (22-30) mmol/L BUN 3 L (7-17) mg/dL Creatinine 0.42 L (0.52-1.04) mg/dL Glucose 167 H (74-99) mg/dL POC Glucose (mg/dL) 137 H 148 H (70-110) mg/dL Calcium (8.4-10.2) mg/dL Urine Appearance (Clear) Urine Protein (Negative) Urine Glucose (UA) (Negative) Urine Ketones (Negative) Urine Bacteria (None) /hpf Urine Mucus (None) /hpf 03/03/24 03/03/24 03/03/24 Range/Units 06:08 07:00 09:19 WBC (3.8-10.6) k/uL RBC (3.80-5.40) m/uL VBG pH 7.29 L (7.31-7.41) VBG pCO2 23 L (37-51) mmHg VBG HCO3 11 L (24-28) mmol/L Sodium (137-145) mmol/L Chloride (98-107) mmol/L Carbon Dioxide (22-30) mmol/L BUN (7-17) mg/dL Creatinine (0.52-1.04) mg/dL Glucose (74-99) mg/dL POC Glucose (mg/dL) 178 H (70-110) mg/dL Calcium (8.4-10.2) mg/dL Urine Appearance Cloudy H (Clear) Urine Protein Trace H (Negative) Urine Glucose (UA) 3+ H (Negative) Urine Ketones 4+ H (Negative) Urine Bacteria Rare H (None) /hpf Urine Mucus Rare H (None) /hpf 03/03/24 03/03/24 Range/Units 09:19 09:19 WBC 10.9 H (3.8-10.6) k/uL RBC 3.76 L (3.80-5.40) m/uL VBG pH (7.31-7.41) VBG pCO2 (37-51) mmHg VBG HCO3 (24-28) mmol/L Sodium 130 L (137-145) mmol/L Chloride 113 H (98-107) mmol/L Carbon Dioxide 9 L* (22-30) mmol/L BUN 4 L (7-17) mg/dL Creatinine 0.38 L (0.52-1.04) mg/dL Glucose 179 H (74-99) mg/dL POC Glucose (mg/dL) (70-110) mg/dL Calcium (8.4-10.2) mg/dL Urine Appearance (Clear) Urine Protein (Negative) Urine Glucose (UA) (Negative) Urine Ketones (Negative) Urine Bacteria (None) /hpf Urine Mucus (None) /hpf
[2024-03-03 10:13] LABS: Glucose,Whole Blood 165 mg/dL (70-110)
[2024-03-03 11:15] LABS: Glucose,Whole Blood 122 mg/dL (70-110)
[2024-03-03] MEDS: POTASSIUM CHLORIDE 20 MEQ in WATER FOR INJECTION 1 100ML.BAG IVPB STA (11:40)
[2024-03-03 11:57] LABS: Glucose,Whole Blood 104 mg/dL (70-110)
[2024-03-03 12:30] LABS: African American GFR (CKD) >90 (>60 ml/min/1.73 sqM); Anion Gap 7 mmol/L; Blood Urea Nitrogen 3 mg/dL (7-17); Carbon Dioxide 14 mmol/L (22-30); Chloride 110 mmol/L (98-107); Glucose 104 mg/dL (74-99); Non-African American GFR(CKD) >90 (>60 ml/min/1.73 sqM); Potassium 3.4 mmol/L (3.5-5.1); Sodium 131 mmol/L (137-145)
[2024-03-03 13:09] LABS: Glucose,Whole Blood 111 mg/dL (70-110)
[2024-03-03] MEDS: POTASSIUM CHLORIDE 20 MEQ in WATER FOR INJECTION 1 100ML.BAG IVPB SCH (14:00)
[2024-03-03 14:02] LABS: Glucose,Whole Blood 117 mg/dL (70-110)
[2024-03-03 14:12] VITALS: BMI 28.3
[2024-03-03 15:05] LABS: Glucose,Whole Blood 147 mg/dL (70-110)
--- NOTE | 2024-03-03 15:18 | P.OBCN ---
History of Present Illness Consult date: 03/02/24 Reason for consult: other (22 weeks type 1 DM, DKA ) Chief complaint: IUP @ 22 weeks, type 1 DM, DKA History of present illness: 28 yo at approximately 22 weeks that presented to [facility] ed with complaints of nausea and vomitting, and was found to be in DKA. She is a known type 1 DM, and see Dr Mike at [facility] for care, she is feeling better today and states the ENAMORADO she has had since admission is improving now that her BS are improving she is feeling FM, and denies any concerns US was completed 03/02 and is c/w gestational age. 1 , delivered at 30 weeks HELLP syndrome and dx of type 1 DM 2 term , LTCS due to arrest of descent 3 current Review of Systems Constitutional: Reports fatigue, Denies chills, Denies fever Ears, nose, mouth and throat: Reports headache Gastrointestinal: Reports nausea, Reports vomiting Genitourinary: Reports Past Medical History Past Medical History: Diabetes Mellitus Additional Past Medical History / Comment(s): type 1 History of Any Multi-Drug Resistant Organisms: None Reported Past Surgical History: Section Past Psychological History: No Psychological Hx Reported Smoking Status: Never smoker Past Alcohol Use History: None Reported Past Drug Use History: None Reported, Marijuana - Past Family History Mother Family Medical History: Thyroid Disorder Father Family Medical History: Diabetes Mellitus Medications and Allergies Home Medications Medication Instructions Recorded Confirmed Type Aspirin EC [Ecotrin Low Dose] 81 mg PO DAILY 03/01/24 03/01/24 History Calcium Carbonate [Calcium] 600 mg PO DAILY 03/01/24 03/01/24 History Cetirizine HCl [Zyrtec] 10 mg PO DAILY 03/01/24 03/01/24 History Insulin Aspart (For Pump) [NovoLOG 0.01 unit SQ-PUMP CONTINUOUS 03/01/24 03/01/24 History (For Pump)] valACYclovir HCL [Valtrex] 1,000 mg PO BID 03/01/24 03/01/24 History Allergies Allergy/AdvReac Type Severity Reaction Status Date / Time Penicillins Allergy Anaphylaxis/Flu Verified 03/01/24 17:40 Like Symptoms Exam Osteopathic Statement: *. No significant issues noted on an osteopathic structural exam other than those noted in the History and Physical/Consult. Vital Signs Temp Pulse Resp BP Pulse Ox 03/02/24 16:34 97.9 F 82 17 107/61 99 03/02/24 15:45 80 18 106/69 100 03/02/24 13:47 98.0 F 71 18 111/66 98 03/02/24 11:52 78 17 93/47 98 03/02/24 10:15 98.0 F 86 18 113/68 98 03/02/24 09:00 97.8 F 80 17 99/86 99 03/02/24 06:22 66 18 107/67 98 03/02/24 03:46 86 17 101/59 97 03/01/24 19:00 77 16 101/59 99 Intake and Output 03/02/24 03/02/24 03/02/24 06:59 14:59 22:59 Other: Weight 63.503 kg targeted PE in general this is a well nourished well developed female in no acute distress breathing appears non labored abdomen is gravid, FHT were noted on US yesterday and will be done again today Results Result Diagrams: 03/03/24 09:19 03/03/24 11:59 Abnormal Lab Results - Last 24 Hours (Table) 03/01/24 03/01/24 03/01/24 Range/Units 19:17 19:52 21:58 Sodium 135 L (137-145) mmol/L Chloride 110 H (98-107) mmol/L Carbon Dioxide 16 L (22-30) mmol/L Creatinine 0.35 L (0.52-1.04) mg/dL Glucose 173 H (74-99) mg/dL POC Glucose (mg/dL) 192 H (70-110) mg/dL Calcium (8.4-10.2) mg/dL Ur Specific Laura 1.036 H (1.001-1.035) Urine Protein Trace H (Negative) Urine Glucose (UA) 4+ H (Negative) Urine Ketones 4+ H (Negative) 03/02/24 03/02/24 03/02/24 Range/Units 00:39 01:23 06:21 Sodium 134 L (137-145) mmol/L Chloride 113 H (98-107) mmol/L Carbon Dioxide 16 L (22-30) mmol/L Creatinine 0.32 L (0.52-1.04) mg/dL Glucose 173 H (74-99) mg/dL POC Glucose (mg/dL) 170 H 162 H (70-110) mg/dL Calcium (8.4-10.2) mg/dL Ur Specific Laura (1.001-1.035) Urine Protein (Negative) Urine Glucose (UA) (Negative) Urine Ketones (Negative) 03/02/24 03/02/24 03/02/24 Range/Units 09:09 10:19 11:26 Sodium 132 L (137-145) mmol/L Chloride (98-107) mmol/L Carbon Dioxide 16 L (22-30) mmol/L Creatinine 0.35 L (0.52-1.04) mg/dL Glucose 144 H (74-99) mg/dL POC Glucose (mg/dL) 154 H 156 H (70-110) mg/dL Calcium 8.3 L (8.4-10.2) mg/dL Ur Specific Laura (1.001-1.035) Urine Protein (Negative) Urine Glucose (UA) (Negative) Urine Ketones (Negative) 03/02/24 03/02/24 03/02/24 Range/Units 11:51 13:52 15:09 Sodium (137-145) mmol/L Chloride (98-107) mmol/L Carbon Dioxide (22-30) mmol/L Creatinine (0.52-1.04) mg/dL Glucose (74-99) mg/dL POC Glucose (mg/dL) 153 H 112 H 119 H (70-110) mg/dL Calcium (8.4-10.2) mg/dL Ur Specific Laura (1.001-1.035) Urine Protein (Negative) Urine Glucose (UA) (Negative) Urine Ketones (Negative) 03/02/24 Range/Units 16:51 Sodium (137-145) mmol/L Chloride (98-107) mmol/L Carbon Dioxide (22-30) mmol/L Creatinine (0.52-1.04) mg/dL Glucose (74-99) mg/dL POC Glucose (mg/dL) 128 H (70-110) mg/dL Calcium (8.4-10.2) mg/dL Ur Specific Laura (1.001-1.035) Urine Protein (Negative) Urine Glucose (UA) (Negative) Urine Ketones (Negative) Assessment and Plan (1) 22 weeks gestation of Current Visit: Yes Status: Acute Code(s): Z3A.22 - 22 WEEKS GESTATION OF SNOMED Code(s): 81549433 (2) DKA, type 1 Current Visit: Yes Status: Acute Code(s): E10.10 - TYPE 1 DIABETES MELLITUS WITH KETOACIDOSIS WITHOUT COMA SNOMED Code(s): 950003693 Plan: 28 yo at 22 weeks admitted to [facility] in DKA. US is ordered for EFW/SHASTA c/w gestation age. FHTs daily via doppler will follow along and defer to medicine for management of DKA, DM .
--- NOTE | 2024-03-03 15:48 | P.PN ---
Subjective Progress Note Date: 03/03/24 I am following-up with patient and states her headache is drastically better. Denies any visual disturbance or any new neurological issues. Getting IV Potassium supplement. Objective - Vital Signs Vital signs: Vital Signs Temp 97.9 F 03/03/24 09:15 Pulse 77 03/03/24 11:15 Resp 18 03/03/24 11:15 BP 100/62 03/03/24 11:15 Pulse Ox 99 03/03/24 11:15 FiO2 Intake & Output 03/02/24 03/03/24 03/03/24 18:59 06:59 18:59 Intake Total 13.368 Balance 13.368 Weight 63.503 kg 65.7 kg 65.7 kg Intake: Intake, IV Titration 13.368 Amount Insulin Regular 100 unit 13.368 In Sodium Chloride 0.9% 100 ml @ 0.1 UNITS/KG/HR 6.636 mls/hr IV .[id number] [facility] Rx#:[id number] Other: Voiding Method Toilet Toilet - Exam GENERAL: The patient is lying in bed and is not in acute distress. NEUROLOGICAL: Higher mental function: The patient is awake, alert, oriented to self, place and time. Patient is following commands. No aphasia and no neglect. Cranial nerves: The pupils are round, equal and reactive to light and accommodation. Visual agustin are full to confrontation throughout. Fundoscopy: Normal optic disc bilaterally and no appreciable papilledema. Extraocular movement is intact no nystagmus is noted. Facial sensation is normal to touch throughout. The facial strength is normal throughout. Hearing is normal bilaterally to hand rub. Tongue is midline and moved [id number] without any difficulty. No dysarthria is noted. Shoulder shrug is normal bilaterally. Motor: The strength is 5 over 5 throughout. Normal tone and bulk. Cerebellum: Normal finger to nose heel to chin bilaterally. Sensation: Sensation is normal to touch throughout. Reflexes (right/left): 2+ throughout. Plantars are downgoing bilaterally. Some of the workup during this hospital visit consisted of: Blood pressure has been within normal limits. Patient is afebrile White blood cell is 19.6. Sodium is 134, creatinine is 0.43, glucose is 255, plasma lactic acid vein is 1.9, calcium is 9.2, AST ALT is within normal limits. TSH is 1.610. Acetone is positive MRI Brain and MRV Brain are unremarkable. - Labs CBC & Chem 7: 03/03/24 09:19 03/03/24 11:59 Labs: Abnormal Lab Results - Last 24 Hours (Table) 03/02/24 03/02/24 03/02/24 Range/Units 16:51 19:03 19:51 WBC (3.8-10.6) k/uL RBC (3.80-5.40) m/uL VBG pH (7.31-7.41) VBG pCO2 (37-51) mmHg VBG HCO3 (24-28) mmol/L Sodium (137-145) mmol/L Potassium (3.5-5.1) mmol/L Chloride (98-107) mmol/L Carbon Dioxide (22-30) mmol/L BUN (7-17) mg/dL Creatinine (0.52-1.04) mg/dL Glucose (74-99) mg/dL POC Glucose (mg/dL) 128 H 122 H 126 H (70-110) mg/dL Phosphorus (2.5-4.5) mg/dL Urine Appearance (Clear) Urine Protein (Negative) Urine Glucose (UA) (Negative) Urine Ketones (Negative) Urine Bacteria (None) /hpf Urine Mucus (None) /hpf 03/02/24 03/02/24 03/03/24 Range/Units 20:59 21:59 01:52 WBC (3.8-10.6) k/uL RBC (3.80-5.40) m/uL VBG pH (7.31-7.41) VBG pCO2 (37-51) mmHg VBG HCO3 (24-28) mmol/L Sodium (137-145) mmol/L Potassium (3.5-5.1) mmol/L Chloride (98-107) mmol/L Carbon Dioxide (22-30) mmol/L BUN (7-17) mg/dL Creatinine (0.52-1.04) mg/dL Glucose (74-99) mg/dL POC Glucose (mg/dL) 157 H 137 H 148 H (70-110) mg/dL Phosphorus (2.5-4.5) mg/dL Urine Appearance (Clear) Urine Protein (Negative) Urine Glucose (UA) (Negative) Urine Ketones (Negative) Urine Bacteria (None) /hpf Urine Mucus (None) /hpf 03/03/24 03/03/24 03/03/24 Range/Units 05:57 06:08 07:00 WBC (3.8-10.6) k/uL RBC (3.80-5.40) m/uL VBG pH (7.31-7.41) VBG pCO2 (37-51) mmHg VBG HCO3 (24-28) mmol/L Sodium 131 L (137-145) mmol/L Potassium (3.5-5.1) mmol/L Chloride 109 H (98-107) mmol/L Carbon Dioxide 8 L* (22-30) mmol/L BUN 3 L (7-17) mg/dL Creatinine 0.42 L (0.52-1.04) mg/dL Glucose 167 H (74-99) mg/dL POC Glucose (mg/dL) 178 H (70-110) mg/dL Phosphorus (2.5-4.5) mg/dL Urine Appearance Cloudy H (Clear) Urine Protein Trace H (Negative) Urine Glucose (UA) 3+ H (Negative) Urine Ketones 4+ H (Negative) Urine Bacteria Rare H (None) /hpf Urine Mucus Rare H (None) /hpf 03/03/24 03/03/24 03/03/24 Range/Units 09:19 09:19 09:19 WBC 10.9 H (3.8-10.6) k/uL RBC 3.76 L (3.80-5.40) m/uL VBG pH 7.29 L (7.31-7.41) VBG pCO2 23 L (37-51) mmHg VBG HCO3 11 L (24-28) mmol/L Sodium 130 L (137-145) mmol/L Potassium (3.5-5.1) mmol/L Chloride 113 H (98-107) mmol/L Carbon Dioxide 9 L* (22-30) mmol/L BUN 4 L (7-17) mg/dL Creatinine 0.38 L (0.52-1.04) mg/dL Glucose 179 H (74-99) mg/dL POC Glucose (mg/dL) (70-110) mg/dL Phosphorus (2.5-4.5) mg/dL Urine Appearance (Clear) Urine Protein (Negative) Urine Glucose (UA) (Negative) Urine Ketones (Negative) Urine Bacteria (None) /hpf Urine Mucus (None) /hpf 03/03/24 03/03/24 03/03/24 Range/Units 10:11 11:14 11:59 WBC (3.8-10.6) k/uL RBC (3.80-5.40) m/uL VBG pH (7.31-7.41) VBG pCO2 (37-51) mmHg VBG HCO3 (24-28) mmol/L Sodium (137-145) mmol/L Potassium (3.5-5.1) mmol/L Chloride (98-107) mmol/L Carbon Dioxide (22-30) mmol/L BUN (7-17) mg/dL Creatinine (0.52-1.04) mg/dL Glucose (74-99) mg/dL POC Glucose (mg/dL) 165 H 122 H (70-110) mg/dL Phosphorus 1.2 L (2.5-4.5) mg/dL Urine Appearance (Clear) Urine Protein (Negative) Urine Glucose (UA) (Negative) Urine Ketones (Negative) Urine Bacteria (None) /hpf Urine Mucus (None) /hpf 03/03/24 03/03/24 03/03/24 Range/Units 11:59 13:08 14:01 WBC (3.8-10.6) k/uL RBC (3.80-5.40) m/uL VBG pH (7.31-7.41) VBG pCO2 (37-51) mmHg VBG HCO3 (24-28) mmol/L Sodium 131 L (137-145) mmol/L Potassium 3.4 L (3.5-5.1) mmol/L Chloride 110 H (98-107) mmol/L Carbon Dioxide 14 L (22-30) mmol/L BUN 3 L (7-17) mg/dL Creatinine 0.40 L (0.52-1.04) mg/dL Glucose 104 H (74-99) mg/dL POC Glucose (mg/dL) 111 H 117 H (70-110) mg/dL Phosphorus (2.5-4.5) mg/dL Urine Appearance (Clear) Urine Protein (Negative) Urine Glucose (UA) (Negative) Urine Ketones (Negative) Urine Bacteria (None) /hpf Urine Mucus (None) /hpf 03/03/24 Range/Units 15:03 WBC (3.8-10.6) k/uL RBC (3.80-5.40) m/uL VBG pH (7.31-7.41) VBG pCO2 (37-51) mmHg VBG HCO3 (24-28) mmol/L Sodium (137-145) mmol/L Potassium (3.5-5.1) mmol/L Chloride (98-107) mmol/L Carbon Dioxide (22-30) mmol/L BUN (7-17) mg/dL Creatinine (0.52-1.04) mg/dL Glucose (74-99) mg/dL POC Glucose (mg/dL) 147 H (70-110) mg/dL Phosphorus (2.5-4.5) mg/dL Urine Appearance (Clear) Urine Protein (Negative) Urine Glucose (UA) (Negative) Urine Ketones (Negative) Urine Bacteria (None) /hpf Urine Mucus (None) /hpf Assessment and Plan Assessment: This is a 28-year-old woman with history of diabetes 22 weeks gestation and states that she has been having recurrent nausea vomiting episodes and noticed that she is having a headache after having these episodes. Seems that she has DKA. Cephalgia due to her hyperemesis and DKA--today headache is drastically better. No focal deficit on examination. MRI Brain and MRV brain are unremarkable. Diabetic ketoacidosis 22-week gestation Underlying history of diabetes Plan: .Patient is on Tylenol 650 mg every 6 hours as needed OB is consulted Defer the rest of the medical management to the primary other specialist The plan is discussed with patient and primary team. There is no further neurological work-up. Will sign off. Please reconsult if needed. Time with Patient: Less than 30
[2024-03-03 16:07] LABS: Glucose,Whole Blood 160 mg/dL (70-110)
[2024-03-03] MEDS: FAMOTIDINE 20 MG TAB PO SCH (16:09)
[2024-03-03] MEDS: LORATADINE 10 MG TAB PO PRN (16:09)
[2024-03-03 16:59] LABS: African American GFR (CKD) >90 (>60 ml/min/1.73 sqM); Anion Gap 7 mmol/L; Blood Urea Nitrogen 2 mg/dL (7-17); Carbon Dioxide 11 mmol/L (22-30); Chloride 112 mmol/L (98-107); Glucose 159 mg/dL (74-99); Non-African American GFR(CKD) >90 (>60 ml/min/1.73 sqM); Potassium 4.3 mmol/L (3.5-5.1); Sodium 130 mmol/L (137-145)
[2024-03-03 17:07] LABS: Glucose,Whole Blood 148 mg/dL (70-110)
[2024-03-03 18:09] LABS: Glucose,Whole Blood 150 mg/dL (70-110)
[2024-03-03 18:58] LABS: Glucose,Whole Blood 158 mg/dL (70-110)
[2024-03-03 20:06] LABS: Glucose,Whole Blood 187 mg/dL (70-110)
[2024-03-03 21:56] LABS: Glucose,Whole Blood 192 mg/dL (70-110)
[2024-03-03 23:15] LABS: Glucose,Whole Blood 216 mg/dL (70-110)
[2024-03-04 00:19] LABS: Glucose,Whole Blood 191 mg/dL (70-110)
[2024-03-04 01:13] LABS: Glucose,Whole Blood 197 mg/dL (70-110)
[2024-03-04 01:58] LABS: Glucose,Whole Blood 220 mg/dL (70-110)
[2024-03-04 03:11] LABS: Glucose,Whole Blood 234 mg/dL (70-110)
[2024-03-04 04:04] LABS: Glucose,Whole Blood 237 mg/dL (70-110)
[2024-03-04 05:19] LABS: Glucose,Whole Blood 232 mg/dL (70-110)
[2024-03-04 06:12] LABS: Glucose,Whole Blood 232 mg/dL (70-110)
[2024-03-04 07:00] LABS: Basophils % (A) 0 %; Eosinophils # (A) 0.2 k/uL (0-0.7); Eosinophils % (A) 3 %; HCT 35.3 % (34.0-46.0); HGB 11.7 gm/dL (11.4-16.0); Lymphocytes # (A) 1.7 k/uL (1.0-4.8); Lymphocytes % (A) 20 %; MCH 30.9 pg (25.0-35.0); MCHC 33.2 g/dL (31.0-37.0); MCV 93.1 fL (80.0-100.0); Mean Platelet Volume 8.6; Monocytes # (A) 0.4 k/uL (0-1.0); Monocytes % (A) 5 %; Neutrophils # (A) 5.9 k/uL (1.3-7.7); Neutrophils % (A) 70 %; Platelet Count 229 k/uL (150-450); RDW 13.3 % (11.5-15.5); WBC 8.4 k/uL (3.8-10.6)
[2024-03-04 07:14] LABS: Glucose,Whole Blood 200 mg/dL (70-110)
[2024-03-04 07:18] LABS: African American GFR (CKD) >90 (>60 ml/min/1.73 sqM); Anion Gap 7 mmol/L; Blood Urea Nitrogen <2 mg/dL (7-17); Carbon Dioxide 16 mmol/L (22-30); Chloride 104 mmol/L (98-107); Glucose 242 mg/dL (74-99); Non-African American GFR(CKD) >90 (>60 ml/min/1.73 sqM); Sodium 127 mmol/L (137-145)
[2024-03-04 08:02] LABS: Glucose,Whole Blood 216 mg/dL (70-110)
[2024-03-04 09:21] LABS: Glucose,Whole Blood 220 mg/dL (70-110)
[2024-03-04 09:39] VITALS: RESP 16; TEMP 97.5
[2024-03-04 10:19] LABS: Glucose,Whole Blood 179 mg/dL (70-110)
[2024-03-04 10:54] LABS: Glucose,Whole Blood 156 mg/dL (70-110)
[2024-03-04 11:48] VITALS: BP 107/69; PULSE 126
[2024-03-04] MEDS: INSULIN DETEMIR (LEVEMIR) 100 UNIT/ML SYR SQ SCH (11:48)
[2024-03-04 11:54] LABS: Glucose,Whole Blood 172 mg/dL (70-110)
[2024-03-04 12:01] LABS: Calcium 8.7 mg/dL (8.4-10.2)
[2024-03-04] MEDS: INSULIN ASPART (NovoLOG) 100 UNIT/ML VIAL SQ SCH (12:15)
[2024-03-04 12:28] LABS: African American GFR (CKD) >90 (>60 ml/min/1.73 sqM); Anion Gap 4 mmol/L; Blood Urea Nitrogen <2 mg/dL (7-17); Calcium 8.8 mg/dL (8.4-10.2); Carbon Dioxide 18 mmol/L (22-30); Chloride 108 mmol/L (98-107); Glucose 148 mg/dL (74-99); Non-African American GFR(CKD) >90 (>60 ml/min/1.73 sqM); Potassium 3.6 mmol/L (3.5-5.1); Sodium 130 mmol/L (137-145)
[2024-03-04 13:01] LABS: Glucose,Whole Blood 154 mg/dL (70-110)
--- NOTE | 2024-03-04 14:20 | P.DS ---
Providers Date of admission: 03/01/24 19:27 Attending physician: Dominic Barksdale Consults: 03/01/24 19:24 Consult Physician Urgent Consulting Provider: Abrahan Thurman Consult Reason/Comments: DKA in Do you want consulting provider notified?: Yes 03/02/24 14:17 Consult Physician Urgent Consulting Provider: Antonio Jackman Consult Reason/Comments: [place]igr[place] Do you want consulting provider notified?: Yes Primary care physician: [facility] Hospital Course: Discharge Diagnosis: Diabetic ketoacidosis Headache of unknown etiology History of preeclampsia Type 1 diabetes 22 weeks Hospital Course: 28-year-old female at approximately 22 weeks gestation with a past medical history of type 1 diabetes and preeclampsia presents due to nausea vomiting. Patient reports she woke up yesterday morning and was feeling very nauseous and vomited multiple times. Patient reports once her symptoms did not stop see she decided come to the ED. Patient also admits to having a headache that she believes is from her not eating and not having any caffeine which she normally has copious amounts of. Patient states she normally has a insulin pump that has been functioning properly as well as a glucose monitor that she is not currently wearing. Denies any complications in previous term delivery and no complications during this current . States she follows with Dr. Mike at [facility]. Patient admits to nausea, vomiting, headache, but denies chest pain, shortness of breath, palpitations, abdominal pain, diarrhea, constipation, and polyuria. Family history: Type 1 diabetes Surgical history: Social: Socially drinks, not currently because of . Initial lab work from the ER was significant for WBC 19.6, VBG pH to 7.26, VBG bicarb 21, sodium 135, chloride 110, bicarb 16, glucose 173. EKG done in the ER showed heart rate of 71 bpm, no ST segment elevation or depression seen, no T-wave inversions seen. NSR While admitted patient was started on insulin drip which had to temporarily be paused due to her potassium dropping below 4. At that time the insulin drip was paused and the patient was given potassium replacement until new labs showed a potassium above 4. At that time the insulin drip was continued until the patient's anion gap closed and she became asymptomatic. Patient was also having a headache while here for which neurology was consulted. Neurology wanted to do a brain MRI and after communicating this with the patient's [facility] the brain MRI was performed and showed no acute process and unremarkable. Patient also received a ultrasound which showed single, live intrauterine . Patient's headache improved with Tylenol and Claritin. Once patient's DKA had resolved, we switched from insulin drip to SQ and the patient was able to tolerate regular diet. Once patient tolerated the diet without nausea or vomiting she was clear medically for discharge. Upon discharge the patient's insulin pump was restarted. Patient is cleared for discharge to home. 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 Pt seen and examined at bedside: Patient reports her symptoms of nausea vomiting abdominal pain have ceased and she only has a minor headache. Vital signs reveiwed and stable: General: non toxic, no distress, appears at stated age, normal weight Derm: no unusual rashes/lesions, warm Head: atraumatic, normocephalic, symmetric Eyes: EOMI, no lid lag, anicteric sclera, pupils equal round reactive to light ENT: Nose and ears atraumatic Neck: No cervical lymphadenopathy, trachea midline, supple Mouth: no lip lesion, mucus membranes moist Cardiovascular: S1S2 reg, no murmur, positive dorsalis pedis pulse bilateral, no edema Lungs: Decreased air entry bilaterally, no rhonchi, no rales, no accessory muscle use Abdominal: soft, nontender to palpation, no guarding Ext: muscle strength 5 out of 5 in all 4 extremities grossly, no gross muscle atrophy, no contractures, Neuro: CN II-XI grossly intact, no gross focal neuro deficits Psych: Alert, oriented, appropriate affect A total of greater than 30 minutes were spent preparing this complex discarge summary. Patient was discharged on 03/04/2024, 12:48 PM. Attestation I have seen and examined this patient with my resident , discussed the same with the resident/NANETTE, and agree with the dictator's assessment and plan as written Dr. Dre dallas Plan - Discharge Summary Discharge Rx Participant: Yes New Discharge Prescriptions: Continue Cetirizine HCl [Zyrtec] 10 mg PO DAILY Calcium Carbonate [Calcium] 600 mg PO DAILY valACYclovir HCL [Valtrex] 1,000 mg PO BID Insulin Aspart (For Pump) [NovoLOG (For Pump)] 0.01 unit SQ-PUMP CONTINUOUS Aspirin EC [Ecotrin Low Dose] 81 mg PO DAILY Discharge Medication List Aspirin EC [Ecotrin Low Dose] 81 mg PO DAILY 03/01/24 [History] Calcium Carbonate [Calcium] 600 mg PO DAILY 03/01/24 [History] Cetirizine HCl [Zyrtec] 10 mg PO DAILY 03/01/24 [History] Insulin Aspart (For Pump) [NovoLOG (For Pump)] 0.01 unit SQ-PUMP CONTINUOUS 03/01/24 [History] valACYclovir HCL [Valtrex] 1,000 mg PO BID 03/01/24 [History] Follow up Appointment(s)/Referral(s): Cristian Fuchs MD [REFERRING] - 1 Week (Please call to schedule follow up appo itment) Janee Fried MD [Primary Care Provider] - 1-2 days (Please call to schedule follow up appoitment) Patient Instructions/Handouts: Diabetic Ketoacidosis (DC) Discharge Disposition: HOME SELF-CARE
[2024-03-04 14:26] LABS: Glucose,Whole Blood 135 mg/dL (70-110)
== END 2024-03-04 15:05 | disposition home or self-care (01) | DRG 566 ==
LOC: EC 15:45 → 4SSUR 19:27 → 3SCARD 20:06
PROVIDERS: ADMIT Hospitalist; ATTEND Hospitalist
DX: O24.012 Pre-existing type 1 diabetes mellitus, in pregnancy, second trimester (principal); O21.0 Mild hyperemesis gravidarum; Z3A.22 22 weeks gestation of pregnancy; E10.10 Type 1 diabetes mellitus with ketoacidosis without coma; Z79.85 Long-term (current) use of injectable non-insulin antidiabetic drugs; Z79.82 Long term (current) use of aspirin; Z79.4 Long term (current) use of insulin; Z96.41 Presence of insulin pump (external) (internal); R51.9 Headache, unspecified; O34.219 Maternal care for unspecified type scar from previous cesarean delivery; O99.892 Other specified diseases and conditions complicating childbirth; Z79.899 Other long term (current) drug therapy; Z88.0 Allergy status to penicillin; R19.7 Diarrhea, unspecified; Z20.822 Contact with and (suspected) exposure to COVID-19
CPT/HCPCS: 36415; 70544; 70551; 76805; 80048; 80051; 80053; 81001; 81003; 82009; 82565; 82803; 82947; 83605; 83735; 84100; 84443; 84520; 85025; 87636; 93005; 96361; 96365; 96375; 99285

== ENCOUNTER → 2024-04-26 | Outpatient (CLI) | payer MEDICARE ==
[2024-04-26 15:33] LABS: ALT 9 U/L (8-44); AST 15 U/L (13-35); Albumin 3.6 g/dL (3.8-4.9); Albumin/Globulin Ratio 1.33 Ratio (1.60-3.17); Alkaline Phosphatase 86 U/L (41-126); Blood Urea Nitrogen 7.1 mg/dL (9.0-27.0); Calcium 8.8 mg/dL (8.7-10.3); Carbon Dioxide 19.7 mmol/L (21.6-31.8); Chloride 102 mmol/L (96-109); Chol/HDL Ratio 4.52 Ratio; Globulin 2.7 g/dL (1.6-3.3); Glucose 251 mg/dL (70-110); LDL Cholesterol,Calculated 165.4 mg/dL (0.0-131.0); Potassium 3.9 mmol/L (3.5-5.5); Sodium 134 mmol/L (135-145); T4, Free (Free Thyroxine) 0.85 ng/dL (0.80-1.80); Total Bilirubin <0.2 mg/dL (0.3-1.2); Total Protein 6.3 g/dL (6.2-8.2)
[2024-04-26 21:55] LABS: C-Peptide 0.75 ng/mL (0.81-3.85)
== END | disposition home or self-care (01) ==
LOC: LABWHC1 09:46
PROVIDERS: ATTEND Internal Medicine Endocrinology, Diabetes & Metabolism
DX: E10.65 Type 1 diabetes mellitus with hyperglycemia (principal)
CPT/HCPCS: 36415; 80053; 80061; 82306; 83036; 83519; 84439; 84443; 84480; 84681; 86337

== ENCOUNTER → 2024-05-28 | Outpatient (CLI) | payer MEDICARE ==
--- NOTE | 2024-05-28 17:25 | US ---
EXAMINATION TYPE: US OB limited DATE OF EXAM: 05/28/2024 COMPARISON: Ultrasound study 03/02/2024 CLINICAL INDICATION: Female, 28 years old with history of 35 weeks. unable to get heart beat.; Hx of stillborn at 30 weeks. No measurements per order. Patient states she felt baby move 2 days ago. Ab domen discomfort. TECHNIQUE: Transabdominal (TA) FINDINGS: GESTATIONAL AGE / DATING Physician Established: (35 weeks/0 days) EDC: 07/02/24 No growth performed on today?s study per ordering physician SURVEY PRESENTATION: Vertex HEART RATE: 0 bpm -Negative FHT's. Color and M-mode performed. Incidental finding: Abnormal free fluid/edema in the abdomen and thoracic cavity which could reflect underlying hydrops fetalis. Note no detailed anatomic survey was performed at this time. IMPRESSION: Findings concerning for demise with no heart tones identified. RETAIL ACCOUNT EXECUTIVE consultation and ap propriate clinical follow-up recommended. *Critical findings were discussed with Dr. Díaz at 5:05 PM on 05/28/2024. [facility], , 05/28/2024 5:23 PM
--- NOTE | 2024-05-28 17:41 | P.HPOB ---
History of Present Illness H&P Date: 05/28/24 Chief Complaint: demise at 35 weeks This is a 28-year-old 5 para 1-1-3-1 at 35 weeks that presents to labor and delivery with complaints of increasing abdominal pain. Patient has been seen at [facility] with Dr. Mike given type I diabetes diagnosis P atient states she had a cerclage removed 05/23 and has noted increased pain. Last movement noted approximately 2 days ago. Patient denies vaginal bleeding. Patient denies loss of fluid. Patient states blood sugars have been elevated at times, stating elevations can be 200-240. She was admitted to [facility] at approximately 20 weeks for DKA. [facility] RN history 5 para 1 1 30-week demise, preeclampsia, help, diagnosis of type 1 diabetes 2 SAB 3 term LTCS arrest of labor, NRFHTs 4 SAB 5 current Review of Systems Constitutional: Denies chills, Denies fatigue, Denies fever Ears, nose, mouth and throat: Denies headache Respiratory: Denies dyspnea Genitourinary: Reports Past Medical History Past Medical History: Diabetes Mellitus Additional Past Medical History / Comment(s): type 1 History of Any Multi-Drug Resistant Organisms: None Reported Past Surgical History: Section Smoking Status: Never smoker - Past Family History Mother Family Medical History: Thyroid Disorder Father Family Medical History: Diabetes Mellitus Medications and Allergies Home Medications Medication Instructions Recorded Confirmed Type Aspirin EC [Ecotrin Low Dose] 81 mg PO DAILY 03/01/24 05/28/24 History Calcium Carbonate [Calcium] 600 mg PO DAILY 03/01/24 05/28/24 History Cetirizine HCl [Zyrtec] 10 mg PO DAILY 03/01/24 05/28/24 History Insulin Aspart (For Pump) [NovoLOG 0.01 unit SQ-PUMP CONTINUOUS 03/01/24 05/28/24 History (For Pump)] valACYclovir HCL [Valtrex] 1,000 mg PO BID 03/01/24 05/28/24 History Allergies Allergy/AdvReac Type Severity Reaction Status Date / Time Penicillins Allergy Anaphylaxis/Flu Verified 03/01/24 17:40 Like Symptoms Exam Osteopathic Statement: *. No significant issues noted on an osteopathic structural exam other than those noted in the History and Physical/Consult. Intake and Output 05/28/24 05/28/24 05/28/24 06:59 14:59 22:59 Other: Weight 69.4 kg Targeted physical exam is performed, in general this is a well-nourished well- developed female in no acute distress, patient is tearful, abdomen is gravid, cervical exam is deferred at this point. Ultrasound done revealing no heart tones, vertex presentation. Assessment and Plan (1) demise Current Visit: Yes Status: Acute Code(s): GNG5531 - SNOMED Code(s): 2765 41298 (2) 35 weeks gestation of Current Visit: Yes Status: Acute Code(s): Z3A.35 - 35 WEEKS GESTATION OF SNOMED Code(s): 87021670 (3) IDDM (insulin dependent diabetes mellitus) Current Visit: Yes Status: Acute Code(s): VGC6429 - SNOMED Code(s): 86941224 (4) H/O section Current Visit: Yes Status: Acute Code(s): Z98.891 - HISTORY OF UTERINE SCAR FROM PREVIOUS SURGERY SNOMED Code(s): 314320533 Plan: 28yo at 35 weeks that presented to OB triage with complaints of abdominal pain. heart tones were not obtained via Doppler therefore ultrasound was performed revealing 35-week demise. Patient is counseled on options for delivery. Patient is a patient at [facility] therefore she can be discharged and go where her care has previously been obtained, she can stay here and we can proceed with induction of labor. Discussed preference of vaginal delivery versus section given demise. Patient has family in room, and will consider all her options. Patient desires to return to [facility] as that is where all of her records, and physicians are available to her. Vital signs are stable, patient denies vaginal bleeding, patient denies loss of fluid at the time of discharge.
[2024-05-28 18:33] VITALS: BP 120/74; PULSE 120; RESP 18; TEMP 97.5
== END ==
LOC: FBPOP 15:34
PROVIDERS: ATTEND Obstetrics & Gynecology Obstetrics
DX: O09.293 Supervision of pregnancy with other poor reproductive or obstetric history, third trimester (principal); Z3A.35 35 weeks gestation of pregnancy; Z98.891 History of uterine scar from previous surgery; Z88.0 Allergy status to penicillin
CPT/HCPCS: 76815; 99213

== ENCOUNTER → 2024-09-30 | Outpatient (CLI) | payer MEDICARE ==
[2024-09-30 19:32] LABS: Microalbumin Creatinine Ratio <6 mg/g Cr (0-30)
[2024-09-30 19:45] LABS: Basophils # (A) 0.03 X 10*3/uL (0.00-0.10); Basophils % (A) 0.4 %; Eosinophils # (A) 0.09 X 10*3/uL (0.04-0.35); Eosinophils % (A) 1.2 %; HCT 38.2 % (37.2-46.3); HGB 12.7 g/dL (12.0-15.0); Lymphocytes # (A) 3.28 X 10*3/uL (0.90-5.00); Lymphocytes % (A) 44.5 %; MCH 26.8 pg (27.0-32.0); MCHC 33.2 g/dL (32.0-37.0); MCV 80.6 FL (80.0-97.0); Mean Platelet Volume 11.3 FL (9.5-12.2); Monocytes # (A) 0.55 X 10*3/uL (0.20-1.00); Monocytes % (A) 7.5 %; NRBC Per 100 WBC 0 X 10*3/uL (0.00-0.01); Neutrophils % (A) 46.1 %; Platelet Count 298 X 10*3/uL (140-440); RBC 4.74 X 10*6/uL (4.10-5.20); RDW 13.4 % (11.5-14.5); WBC 7.37 X 10*3/uL (4.50-10.00)
[2024-09-30 20:11] LABS: ALT 41 U/L (8-44); AST 31 U/L (13-35); Albumin 4.3 g/dL (3.8-4.9); Albumin/Globulin Ratio 1.72 Ratio (1.60-3.17); Alkaline Phosphatase 68 U/L (41-126); BUN/Creat Ratio 19.67 Ratio (12.00-20.00); Blood Urea Nitrogen 11.8 mg/dL (9.0-27.0); Calcium 9.3 mg/dL (8.7-10.3); Chloride 102 mmol/L (96-109); Chol/HDL Ratio 3.03 Ratio; Globulin 2.5 g/dL (1.6-3.3); Glucose 221 mg/dL (70-110); LDL Cholesterol,Calculated 118.9 mg/dL (0.0-131.0); Potassium 4.4 mmol/L (3.5-5.5); Sodium 137 mmol/L (135-145); T4, Free (Free Thyroxine) 1.61 ng/dL (0.80-1.80); Total Bilirubin 0.3 mg/dL (0.3-1.2); Total Protein 6.8 g/dL (6.2-8.2)
== END | disposition home or self-care (01) ==
LOC: LABWHC1 13:43
PROVIDERS: ATTEND Registered Nurse General Practice
DX: Z13.89 Encounter for screening for other disorder (principal); O24.013 Pre-existing type 1 diabetes mellitus, in pregnancy, third trimester; I10 Essential (primary) hypertension; E10.65 Type 1 diabetes mellitus with hyperglycemia; E55.9 Vitamin D deficiency, unspecified
CPT/HCPCS: 36415; 80053; 80061; 82043; 82306; 82570; 84439; 84443; 84480; 85025

== ENCOUNTER → 2024-11-01 | Outpatient (CLI) | payer MEDICARE ==
--- NOTE | 2024-11-01 13:22 | US ---
EXAMINATION TYPE: US thyroid st tissue head/neck DATE OF EXAM: 11/01/2024 COMPARISON: NONE CLINICAL INDICATION: Female, 29 years old with history of R13.10 DYSPHAGIA, E05.90; TECHNIQUE: Grayscale and color Doppler imaging of the thyroid gland. FINDINGS: GLAND SIZE: Right Lobe: 4.7 x 1.0 x 1.5 cm Overall Parenchyma: heterogeneous Left Lobe: 3.5 x 1.0 x 1.4 cm Overall Parenchyma: heterogeneous Isthmus Thickness: 0.2 cm NODULES RIGHT: # of nodules measured on right: 0 LEFT: # of nodules measured on left: 0 ISTHMUS: # of nodules measured in the isthmus: 0 Bilateral neck scanned, no evidence of lymphadenopathy. IMPRESSION: Unremarkable thyroid without discrete nodule. [facility], , 11/01/2024 1:20 PM
== END | disposition home or self-care (01) ==
LOC: RADUSWWP 12:37
PROVIDERS: ATTEND Internal Medicine Endocrinology, Diabetes & Metabolism
DX: R13.10 Dysphagia, unspecified (principal); E05.90 Thyrotoxicosis, unspecified without thyrotoxic crisis or storm
CPT/HCPCS: 76536

== ENCOUNTER → 2024-12-06 | Outpatient (CLI) | payer MEDICARE ==
[2024-12-06 15:51] LABS: ALT 24 U/L (8-44); AST 23 U/L (13-35); Albumin 4.7 g/dL (3.8-4.9); Albumin/Globulin Ratio 1.96 Ratio (1.60-3.17); Alkaline Phosphatase 58 U/L (41-126); Anion Gap 12.60 mmol/L (4.00-12.00); BUN/Creat Ratio 16.33 Ratio (12.00-20.00); Blood Urea Nitrogen 9.8 mg/dL (9.0-27.0); Calcium 9.1 mg/dL (8.7-10.3); Carbon Dioxide 23.4 mmol/L (21.6-31.8); Chloride 106 mmol/L (96-109); Cholesterol 205.00 mg/dL (0.00-200.00); Globulin 2.4 g/dL (1.6-3.3); Glucose 125 mg/dL (70-110); HDL Cholesterol 58.40 mg/dL (40.00-60.00); LDL Cholesterol,Calculated 111.4 mg/dL (0.0-131.0); Potassium 3.9 mmol/L (3.5-5.5); Sodium 142 mmol/L (135-145); T4, Free (Free Thyroxine) 0.82 ng/dL (0.80-1.80); Total Protein 7.1 g/dL (6.2-8.2); Triglycerides 176.00 mg/dL (0.00-149.00); VLDL Calculation 35.20 mg/dL (5.00-40.00)
== END | disposition home or self-care (01) ==
LOC: LABWHC1 09:51
PROVIDERS: ATTEND Registered Nurse General Practice
DX: E05.90 Thyrotoxicosis, unspecified without thyrotoxic crisis or storm (principal); E10.65 Type 1 diabetes mellitus with hyperglycemia; E55.9 Vitamin D deficiency, unspecified
CPT/HCPCS: 36415; 80053; 80061; 82043; 82570; 83036; 84439; 84443; 84480